=== PATIENT | female | born 1945 | race Caucasian/White ===

== ENCOUNTER → 2017-12-04 | Outpatient (CLI) | payer MEDICARE, BC ==
--- NOTE | 2017-12-04 10:58 | FL ---
ESOPHOGRAM. HISTORY: Dysphagia Dr. Clancy. 59 sec FL time. 1 pkg EZ gas II, 3 oz EZ HD, 4 oz EZ paque. Esophagram was performed per the air contrast technique. The patient swallowed barium and effervesce nt crystals without difficulty or delay. Esophageal peristalsis and motility appear to be within normal limits. Mild luminal narrowing involving the cervical esophagus at the C5-6 level. Consider direct visualizat ion. No evidence for diverticulum or aspiration. No hiatal hernia seen. Subsequently single contrast cervical esophagram was performed which fails demonstrate evidence for a spiration penetration or mass. IMPRESSION: 1.Mild luminal narrowing involving the cervical esophagus at the C5-6 level. Consider direct visualiz ation.
--- NOTE | 2017-12-04 18:05 | BD ---
EXAMINATION TYPE: Axial Bone Density DATE OF EXAM: 12/04/2017 CLINICAL HISTORY: Height: 62 Weight: 158 FRAX RISK QUESTIONS: Alcohol (3 or more units per day): no Family History (Parent hip fracture): no Glucocorticoids (More than 3mos): no (Ex: prednisone, prednisolone, methylprednisolone, dexamethasone, and hydrocortisone). History of Fracture in Adulthood: no Secondary Osteoporosis: 1. Type 1 Diabetes: no 2. Hyperthyroidism: no 3. Menopause before 45: no, 47 4. Malnutrition: no 5. Chronic liver disease: no Rheumatoid Arthritis: no Current Tobacco Use: no RISK FACTORS HISTORY OF: Family History of Osteoporosis: no Active: yes Diet low in dairy products/other sources of calcium: yes Postmenopausal woman: yes Take estrogen and/or progesterone medications: no Lost more than 2 inches in height since high school: no Frequent falls: no Poor Health: no Hyperparathyroidism: no Adrenal Insufficiency: no MEDICATIONS: Prednisone or other steroids: no Thyroid Medications: no Osteoporosis Medications: no Additional Medications: Bisoprolol/HCT, Omeprazole, Meloxicam, Losartan , Simvaststin Additional History: osteoarthritis EXAM MEASUREMENTS: Bone mineral densitometry was performed using the [employer] System. Bone mineral density as measured about the Lumbar spine is: ----- L1-L4(G/cm2): 1.164 T Score Values are as follows: ----- L2: -0.8 ----- L3: 0.2 ----- L4: 0.7 ----- L1-L4: -0.1 Bone mineral density not previously done here Bone mineral density about the R hip (g/cm2): 1.041 Bone mineral density about the L hip (g/cm2): 0.981 T Score values are as follows: -----R Neck: 0.0 -----L Neck: -0.4 -----R Total: -0.6 -----L Total: -0.6 Bone mineral density not previously done here IMPRESSION: Normal (Values between +1 and -1 indicate normal bone mass). Consider repeating this study in 5 year s or sooner if there is some new clinical indication. NOTE: T-SCORE=SD OF THE YOUNG ADULT MEAN.
--- NOTE | 2017-12-09 07:13 | MM ---
Reason for exam: screening (asymptomatic). Last mammogram was performed 6 years ago. History: Patient is postmenopausal and has history of other cancer at age 58. Family history of breast cancer in mother. Took estrogen for 10 years beginning at age 47. Physical Findings: A clinical breast exam by your physician is recommended on an annual basis and results should be correlated with mammographic findings. MG Screening Mammo w CAD Bilateral CC and MLO view(s) were taken. Prior study comparison: November 26, 2011, [facility] DIGITAL LEFT BREAST MAMMOGRAM w/CAD. November 12, 2011, bilateral digital screening mammo w/CAD. The breast tissue is heterogeneously dense. This may lower the sensitivity of mammography. Finding: There are typically benign vascular, dystrophic, round calcifications in both breasts. Asymmetric breast tissue in the left breast on prior disperses on current. There is no discrete abnormality. ASSESSMENT: Benign, BI-RAD 2 RECOMMENDATION: Routine screening mammogram of both breasts in 1 year.
== END | disposition home or self-care (01) ==
LOC: RADBDWWP 08:34
PROVIDERS: ATTEND Internal Medicine
DX: Z12.31 Encounter for screening mammogram for malignant neoplasm of breast (principal); K22.2 Esophageal obstruction; M24.10 Other articular cartilage disorders, unspecified site
CPT/HCPCS: 74220; 77067; 77080

== ENCOUNTER → 2017-12-30 | Day surgery (SDC) | payer MEDICARE, BC ==
[2017-12-25 15:46] VITALS: BMI 28.0
[~2017-12-30] MED LIST: LACTATED RINGERS 1,000 ML IV SCH; LIDOCAINE 1% 20 ML VIAL (10MG/ML) FOR IV START INTRADERMA PRN; NALOXONE 0.4 MG/ML 1 ML VIAL IV PRN; PROPOFOL 10 MG/ML 20 ML VIAL IV ONE
--- NOTE | 2017-12-30 13:47 | P.OP ---
Date of Procedure: 12/30/17 Preoperative Diagnosis: GERD Epigastric pain Postoperative Diagnosis: Hiatal hernia Gastritis Duodenitis Procedure(s) Performed: EGD with biopsy Surgeon: Rashel Navarro Pathology: other (Biopsies of duodenum, antrum, esophagus) Condition: stable Disposition: same day Indications for Procedure: 72-year-old female originally presented to the surgery clinic with complaints of epigastric pain and reflux. She is noted to have rheumatoid arthritis and is taking NSAIDs secondary to that. She was told to discontinue the NSAIDs prior to her arrival to the surgery clinic and was started on omeprazole. She states that her epigastric pain did improve after this. She presents today for upper endoscopy for further evaluation. She was explained the risks, benefits and alternatives to the procedure. She did provide consent prior to entering the endoscopy suite. Operative Findings: Hiatal hernia Gastritis Duodenitis Description of Procedure: The patient was brought into the endoscopy suite and placed in left lateral decubitus position. Sedation was provided by anesthesia and an endoscope was placed into the oropharynx into the esophagus and passed through to the second portion of the duodenum. The scope was then slowly retrieved examining mucosal surfaces. The scope was retrieved into the first part of the duodenum. Inflammatory changes were noted. Biopsies were taken. The scope was then withdrawn past the pylorus into the antrum of the stomach. Inflammatory changes were noted within the antrum and biopsies were taken. A retroflexed view was then performed and a small hiatal hernia was visualized. The gastric folds were noted to insufflate appropriately. There were no obvious polyps throughout the stomach. The scope was then retrieved into the esophagus. There were no inflammatory esophageal changes. Biopsies were taken. The scope was then withdrawn and the procedure was terminated. The patient was then taken to the postanesthesia care unit in stable condition.
[2017-12-30 14:33] VITALS: BP 151/86; PULSE 100
== END ==
LOC: ORWHC2ENDO 12:23
PROVIDERS: ATTEND Surgery
DX: K29.50 Unspecified chronic gastritis without bleeding (principal); K44.9 Diaphragmatic hernia without obstruction or gangrene; K29.80 Duodenitis without bleeding; K21.9 Gastro-esophageal reflux disease without esophagitis; M19.90 Unspecified osteoarthritis, unspecified site; I10 Essential (primary) hypertension; M06.9 Rheumatoid arthritis, unspecified; E78.5 Hyperlipidemia, unspecified; H91.90 Unspecified hearing loss, unspecified ear; Z79.1 Long term (current) use of non-steroidal anti-inflammatories (NSAID); Z79.899 Other long term (current) drug therapy; Z79.82 Long term (current) use of aspirin; Z90.49 Acquired absence of other specified parts of digestive tract; Z85.038 Personal history of other malignant neoplasm of large intestine; Z87.891 Personal history of nicotine dependence
CPT/HCPCS: 88305; 43239; J2704

== ENCOUNTER 2024-07-10 00:34 | Inpatient (IN) | payer MEDICARE, BC ==
[2024-07-10] MEDS: HYDROmorphone 1 MG/ML 1 ML SYRINGE IVP STA (00:53)
[2024-07-10] MEDS: SODIUM CHLORIDE 0.9% 1,000 ML IV STA ×2 (00:54→02:17)
[2024-07-10 01:12] LABS: Basophils % (A) 1 %; Eosinophils # (A) 0.2 k/uL (0-0.7); Eosinophils % (A) 2 %; HCT 37.9 % (34.0-46.0); HGB 12.2 gm/dL (11.4-16.0); Lymphocytes % (A) 24 %; MCH 33.7 pg (25.0-35.0); MCHC 32.4 g/dL (31.0-37.0); Macrocytosis Slight; Monocytes # (A) 0.3 k/uL (0-1.0); Monocytes % (A) 4 %; Neutrophils # (A) 5.5 k/uL (1.3-7.7); Neutrophils % (A) 68 %; Platelet Count 214 k/uL (150-450); RBC 3.64 m/uL (3.80-5.40); RDW 13.2 % (11.5-15.5); WBC 8.1 k/uL (3.8-10.6)
--- NOTE | 2024-07-10 01:14 | XR ---
EXAM: XR Left Ankle, 2 Views CLINICAL HISTORY: ITS.REASON XR Reason: pain TECHNIQUE: Frontal and lateral views of the left ankle. COMPARISON: No relevant prior studies available. FINDINGS/IMPRESSION: Displaced, laterally angulated distal fibular shaft fracture located 3.7 cm above the plafond. Displaced transverse medial malleolus fracture. Suspect a posterior malleolus fracture as well. Incongruent ankle mortise with valgus angulation of the talus with respect to the tibial plafond. Soft tissue swelling.
--- NOTE | 2024-07-10 01:24 | XR ---
EXAM: XR Chest, 1 View CLINICAL HISTORY: ITS.REASON XR Reason: pain TECHNIQUE: Frontal view of the chest. COMPARISON: No relevant prior studies available. FINDINGS: Lungs: No airspace consolidation. Pleural space: Unremarkable. No pleural effusion or pneumothorax. Heart: Cardiomegaly. No vascular congestion. Bones/joints: No acute fracture. No dislocation. IMPRESSION: No acute findings in the chest.
[2024-07-10 01:26] LABS: ALT 16 U/L (4-34); AST 28 U/L (14-36); African American GFR (CKD) 83 (>60 ml/min/1.73 sqM); Albumin 4.4 g/dL (3.5-5.0); Alkaline Phosphatase 51 U/L (38-126); Anion Gap 17 mmol/L; Blood Urea Nitrogen 15 mg/dL (7-17); Calcium 9.3 mg/dL (8.4-10.2); Carbon Dioxide 19 mmol/L (22-30); Chloride 103 mmol/L (98-107); Glucose 109 mg/dL (74-99); Non-African American GFR(CKD) 72 (>60 ml/min/1.73 sqM); Potassium 4.4 mmol/L (3.5-5.1); Sodium 139 mmol/L (137-145); Total Bilirubin 0.3 mg/dL (0.2-1.3); Total Protein 7.2 g/dL (6.3-8.2)
--- NOTE | 2024-07-10 01:37 | CT ---
EXAM: CT Head Without Intravenous Contrast CLINICAL HISTORY: ITS.REASON CT Reason: pain TECHNIQUE: Axial computed tomography images of the head/brain without intravenous contrast. CTDI is 45.2 mGy and DLP is 1032 mGy-cm. This CT exam was performed using one or more of the following dose reduction techniques: automated exposure control, adjustment of the mA and/or kV according to patient size, and/or use of iterative reconstruction technique. COMPARISON: No relevant prior studies available. FINDINGS: Brain: Age-related parenchymal volume loss. Mild chronic small vessel ischemic change. Stephens-white matter differentiation maintained. No hemorrhage, mass effect, parenchymal edema, or midline shift. Ventricles: Unremarkable. No hydrocephalus. Bones/joints: Unremarkable. No acute fracture. Soft tissues: Unremarkable. Vasculature: Intracranial atherosclerosis. Sinuses: Unremarkable as visualized. Mastoid air cells: Unremarkable as visualized. No mastoid effusion. Orbits: Lens replacements. IMPRESSION: No acute intracranial process. EXAM: CT Cervical Spine Without Intravenous Contrast CLINICAL HISTORY: ITS.REASON CT Reason: pain TECHNIQUE: Axial computed tomography images of the cervical spine without intravenous contrast. CTDI is 9.5 mGy and DLP is 288.3 mGy-cm. This CT exam was performed using one or more of the following dose reduction techniques: automated exposure control, adjustment of the mA and/or kV according to patient size, and/or use of iterative reconstruction technique. COMPARISON: No relevant prior studies available. FINDINGS: Vertebrae: Osteopenia. No acute fracture or subluxation. Discs/spinal canal/neural foramina: Multilevel left greater than right facet joint degeneration. Mid and lower cervical disc and uncovertebral joint degeneration. No significant central canal narrowing. Varying degrees of bilateral foraminal narrowing. Soft tissues: Unremarkable. IMPRESSION: No acute findings in the cervical spine.
[2024-07-10 01:47] LABS: Partial Thromboplastin Time 22.3 sec (22.0-30.0); Prothrombin Time 10.7 sec (10.0-12.5)
--- NOTE | 2024-07-10 01:51 | ED ---
General Adult HPI - General Chief complaint: Fall Stated complaint: Ankle fracture Time Seen by Provider: 07/10/24 00:35 Source: patient, EMS, RN notes reviewed, old records reviewed Mode of arrival: EMS - History of Present Illness Initial comments: Patient is a 79-year-old female presents emergency department for evaluation after a fall. Patient fell while at home. She was drinking alcohol when somehow she slipped while wearing her slippers and rolled her ankle. Suffered an ankle injury. Was sitting on the floor due to the injury and decided call EMS as she was afraid that she may have broken it. Patient was drinking this evening. Does have a glass of wine daily she states. Denies any history of alcohol withdrawals. Does have a history of acid reflux, hyperlipidemia, hypertension. Denies hitting her head or loss of consciousness. Denies any back pain, other pain other than her left ankle pain. Presents for further evaluation at this time. Patient does not take blood thinners.Patient does live by herself. - Related Data Home Medications Medication Instructions Recorded Confirmed Acetaminophen [Tylenol Extra 1,000 mg PO QAM 12/25/17 12/30/17 Strength] Aspirin [Adult Low Dose Aspirin EC] 81 mg PO DAILY 12/25/17 12/30/17 Bisoprolol-Hctz 10-6.25 mg [Ziac 1 each PO QAM 12/25/17 12/30/17 10-6.25] Cholecalciferol [Vitamin D3] 1,000 unit PO DAILY 12/25/17 12/30/17 Cyanocobalamin (Vitamin B-12) 5,000 mcg PO DAILY 12/25/17 12/30/17 [Vitamin B-12] Losartan Potassium 100 mg PO QAM 12/25/17 12/30/17 Omeprazole 40 mg PO QAM 12/25/17 12/30/17 Simvastatin 40 mg PO HS 12/25/17 12/30/17 Allergies Allergy/AdvReac Type Severity Reaction Status Date / Time No Known Allergies Allergy Verified 12/30/17 12:36 Review of Systems ROS Statement: Those systems with pertinent positive or pertinent negative responses have been documented in the HPI. Review of Systems: CONST: Denies fever EYES: Denies blurry vision ENT: Denies nasal congestion C/V: Denies Chest pain RESP: Denies shortness of breath GI: Denies abdominal pain : Denies dysuria SKIN: Denies rash. MSK: Endorses left ankle pain NEURO: Denies headache ROS Other: All systems not noted in ROS Statement are negative. Past Medical History Past Medical History: GERD/Reflux, Hearing Disorder / Deafness, Hyperlipidemia, Hypertension, Osteoarthritis (OA) Additional Past Medical History / Comment(s): Hard of hearing. History of Any Multi-Drug Resistant Organisms: None Reported Past Surgical History: Bowel Resection Additional Past Surgical History / Comment(s): 25 inches of colon removed 30 yrs ago due to diverticulititis. Past Anesthesia/Blood Transfusion Reactions: No Reported Reaction Past Psychological History: No Psychological Hx Reported Past Alcohol Use History: Daily Past Drug Use History: None Reported - Past Family History Mother Family Medical History: Cancer Additional Family Medical History / Comment(s): Cancerous lymph nodes removed from breast, still living at 97 yrs old. Father Family Medical History: CVA/TIA Additional Family Medical History / Comment(s): at 89 yrs of age. General Exam - General Exam Comments Initial Comments: General: Moderate distress secondary to left ankle pain. Appears intoxicated with alcohol. HEAD: Normal with no signs of head trauma. Negative Wang sign. Negative raccoon eyes. EYES: PERRLA, EOMI, conjunctiva normal, no discharge. Pupils are 3 mm and equal bilaterally. ENT: Hearing grossly intact, normal oropharynx. RESPIRATORY: Clear breath sounds bilaterally. No wheezes, rales, or rhonchi. C/V: Regular rate and rhythm. S1 and S2 auscultated, no edema, peripheral pulses 2+ and intact throughout ABD: Abd is soft, nontender, nondistended EXT: Pelvis is stable. No midline cervical, thoracic, lumbar spine tenderness to palpation. Obvious deformity of the left ankle. There is skin tenting over the medial malleolus of the left ankle however it did not break through. It is not an open fracture. Concern for significant left ankle fracture. No other obvious deformities.Patient is neurovascular intact in the distal left lower extremity. SKIN: Bruising over the medial malleolus but does not appear to be an open fracture. NEURO: Alert and oriented x 4. Cranial nerves II-XII intact. No focal sensory or strength deficits. GCS of 15. Course Vital Signs 07/10/24 07/10/24 00:37 02:19 Temperature 97.7 F Pulse Rate 73 67 Respiratory 18 18 Rate Blood Pressure 130/77 115/65 O2 Sat by Pulse 94 L 98 Oximetry Procedures - Orthopedic Fracture Reduction Fracture #1 Consent Obtained: verbal consent Side: left Fracture Reduction Location: tibia, fibula Analgesia: other (dilaudid) Technique: direct manipulation Post Reduction X-rays Demonstrate: acceptable reduction Post-Reduction Neuro Exam: intact Post-Reduction Vascular Exam: intact Splint Applied: Yes Patient Tolerated Procedure: well - Orthopedic Splinting/Casting Injury #1 Side: left Lower Extremity Injury Location: ankle Lower Extremity Immobilizer: posterior splint, stirrup splint Medical Decision Making - Medical Decision Making Was pt. sent in by a medical professional or institution (, PA, BUSINESS MANAGEMENT CONSULTANT, urgent care, hospital, or longterm...) When possible be specific @ -No Did you speak to anyone other than the patient for history (EMS, parent, family, police, friend...)? What history was obtained from this source @ -No Did you review nursing and triage notes (agree or disagree)? Why? @ -I reviewed and agree with nursing and triage notes Were old charts reviewed (outside hosp., previous admission, EMS record, old EKG, old radiological studies, urgent care reports/EKG's, longterm records)? Report findings @ -Old charts reviewed and only low-dose aspirin listed, no other blood thinners. Differential Diagnosis (chest pain, altered mental status, abdominal pain women, abdominal pain men, vaginal bleeding, weakness, fever, dyspnea, syncope, headache, dizziness, GI bleed, back pain, seizure, CVA, palpatations, mental health, musculoskeletal)? @ -Differential Musculoskeletal Muscular strain, contusion, ligament sprain, fracture, arthritis, septic arthritis, bursitis, cellulitis, muscle spasm, nerve compression, DVT, arterial occlusion, herpes zoster, electrolyte abnormality, tumor.... This is not meant to be in all inclusive list EKG interpreted by me (3pts min.). @ -As above X-rays interpreted by me (1pt min.). @ -Left ankle x-ray reveals at least a by mall fracture of the medial and posterior malleolus as well as a distal fibular shaft fracture. X-ray reveals no obvious acute cardiopulmonary process. Pelvis x-ray reveals no obvious acute traumatic injury. CT interpreted by me (1pt min.). @ -CT brain, C-spine negative for any obvious acute injury or process. U/S interpreted by me (1pt. min.). @ -None done What testing was considered but not performed or refused? (CT, X-rays, U/S, labs)? Why? @ -None What meds were considered but not given or refused? Why? @ -None Did you discuss the management of the patient with other professionals (professionals i.e. DrBravo, PA, BUSINESS MANAGEMENT CONSULTANT, lab, RT, psych nurse, social science manager, acquisition editor, teacher, u[employer]s. revenue officer, correctional counselor/case manager)? Give summary @ - I spoke with the orthopedic surgeon on-call, Dr. Zapien who accepted the admission. Was smoking cessation discussed for >3mins.? @ -No Was critical care preformed (if so, how long)? @ -Yes, 33 minutes. Were there social determinants of health that impacted care today? How? (Homelessness, low income, unemployed, alcoholism, drug addiction, transportation, low edu. Level, literacy, decrease access to med. care, care home, rehab)? @ -No Was there de-escalation of care discussed even if they declined (Discuss DNR or withdrawal of care, Hospice)? DNR status @ -No What co-morbidities impacted this encounter? (DM, HTN, Smoking, COPD, CAD, Cancer, CVA, ARF, Chemo, Hep., AIDS, mental health diagnosis, sleep apnea, morbid obesity)? @ -None Was patient admitted / discharged? Hospital course, mention meds given and route, prescriptions, significant lab abnormalities, going to OR and other pertinent info. @ -Patient is a 79-year-old female that lives by herself that fell and has an obvious left ankle injury. Does not meet trauma activation criteria. She is not on blood thinners. Did not lose consciousness. States she did not hit her head. Remembers the incident. Was wearing slippers when she rolled her ankle. Does not appear to be an open fracture. Patient be given IV fluids, Ancef, pain medications. I was able to reduce the fracture into a more anatomically appropriate position and splinted it. Patient tolerated the procedure well. Vitals are within acceptable limits. We will obtain imaging, as well as laboratory studies. She was in agreement this plan. EKG shows no signs of acute ischemia. Imaging remarkable for significant ankle fracture, she does have both medial and posterior malleoli are fracture with a distal fibular shaft fracture. CT brain and C-spine unremarkable. Remainder the x-ray is unremarkable. Postreduction x-ray of the left ankle does show improved alignment. She is neurovascular intact in the distal left lower extremity.Laboratory studies returned with an alcohol level of 150. Remainder the labs unremarkable. Patient's pain is improved. Discussed results with the patient. I spoke with the orthopedic surgeon on-call, Dr. Zapien who accepted the admission. And he stated no plan for surgery later today and therefore patient was given a diet order. Will continue with pain management. We will place the patient on CIWA protocol empirically, as she does drink on a daily basis. Will watch for signs of alcohol withdrawals. Dr. Clarke will be consulted for medical management. Physical therapy consulted. Patient was in agreement this plan. Undiagnosed new problem with uncertain prognosis? @ -No Drug Therapy requiring intensive monitoring for toxicity (Heparin, Nitro, Insulin, Cardizem)? @ -No Were any procedures done? @ -Fracture reduction, splinting Diagnosis/symptom? @ -Fall, left ankle fracture, left fibula fracture, alcohol intoxication Acute, or Chronic, or Acute on Chronic? @ -Acute Uncomplicated (without systemic symptoms) or Complicated (systemic symptoms)? @ -Complicated Side effects of treatment? @ -None Exacerbation, Progression, or Severe Exacerbation] @ -No Poses a threat to life or bodily function? @ -possibly, yes - Lab Data Result diagrams: 07/10/24 00:45 07/10/24 00:45 Lab Results 07/10/24 07/10/24 07/10/24 Range/Units 00:45 00:45 00:45 WBC 8.1 (3.8-10.6) k/uL RBC 3.64 L (3.80-5.40) m/uL Hgb 12.2 (11.4-16.0) gm/dL Hct 37.9 (34.0-46.0) % MCV 104.0 H (80.0-100.0) fL MCH 33.7 (25.0-35.0) pg MCHC 32.4 (31.0-37.0) g/dL RDW 13.2 (11.5-15.5) % Plt Count 214 (150-450) k/uL MPV 8.0 Neutrophils % 68 % Lymphocytes % 24 % Monocytes % 4 % Eosinophils % 2 % Basophils % 1 % Neutrophils # 5.5 (1.3-7.7) k/uL Lymphocytes # 2.0 (1.0-4.8) k/uL Monocytes # 0.3 (0-1.0) k/uL Eosinophils # 0.2 (0-0.7) k/uL Basophils # 0.0 (0-0.2) k/uL Macrocytosis Slight PT 10.7 (10.0-12.5) sec INR 1.0 (<1.2) APTT 22.3 (22.0-30.0) sec Sodium 139 (137-145) mmol/L Potassium 4.4 (3.5-5.1) mmol/L Chloride 103 (98-107) mmol/L Carbon Dioxide 19 L (22-30) mmol/L Anion Gap 17 mmol/L BUN 15 (7-17) mg/dL Creatinine 0.79 (0.52-1.04) mg/dL Est GFR (CKD-EPI)AfAm 83 (>60 ml/min/1.73 sqM) Est GFR (CKD-EPI)NonAf 72 (>60 ml/min/1.73 sqM) Glucose 109 H (74-99) mg/dL Calcium 9.3 (8.4-10.2) mg/dL Total Bilirubin 0.3 (0.2-1.3) mg/dL AST 28 (14-36) U/L ALT 16 (4-34) U/L Alkaline Phosphatase 51 (38-126) U/L Total Protein 7.2 (6.3-8.2) g/dL Albumin 4.4 (3.5-5.0) g/dL Serum Alcohol 150 mg/dL - EKG Data -: EKG Interpreted by Me EKG Comments: 12-lead Electrocardiogram Interpretation Note EKG was reviewed and interpreted by myself. 12-lead ECG performed at 0126 is interpreted by me as revealing normal sinus rhythm at a rate of 61 beats per minute. [place] is normal. NV interval is 179 ms, QRS durations 88 ms, QTc is 441 ms.. There were no ST or T wave abnormalities to suggest myocardial ischemia or injury. R wave progression across the precordium was satisfactory. By my interpretation this EKG is non-diagnostic for acute ischemia. Critical Care Time Critical Care Time: Yes Total Critical Care Time: 33 Disposition Clinical Impression: Fall, Closed left ankle fracture, Closed left fibular fracture, Alcohol intoxication, Debility Disposition: ADMITTED IP TO THIS [facility] Condition: Stable Referrals: Spencer Smith MD [Primary Care Provider] - 1-2 days Time of Disposition: 02:28
[2024-07-10 02:00] LABS: Alcohol 150 mg/dL
--- NOTE | 2024-07-10 02:12 | XR ---
EXAM: XR Left Ankle Complete, 2 Views CLINICAL HISTORY: ITS.REASON XR Reason: post splint/reduction TECHNIQUE: 2 views of the left ankle. COMPARISON: Left ankle radiographs 07/10/24 at 0046 hours FINDINGS/IMPRESSION: Status post reduction and splinting. Comminuted and mildly displaced distal fibular shaft fracture demonstrating improved alignment when compared to prior. Mildly displaced transverse medial malleolus fracture demonstrating improved alignment when compared to prior. Posterior malleolus fracture suggested on the lateral view. Persistent incongruent ankle mortise, but improved from prior. Soft tissue swelling.
--- NOTE | 2024-07-10 02:21 | XR ---
EXAM: XR Pelvis, 1 or 2 Views CLINICAL HISTORY: ITS.REASON XR Reason: pain TECHNIQUE: Frontal view of the pelvis. COMPARISON: No relevant prior studies available. FINDINGS: Bones/joints: Lumbar scoliosis and spondylosis. Osteoarthritis of both hips. Osteopenia. No acute fracture or dislocation. Soft tissues: Unremarkable. IMPRESSION: No acute findings in the pelvis.
[2024-07-10] MEDS ORDERED: NALOXONE 0.4 MG/ML 1 ML VIAL IV PRN (02:37)
[2024-07-10] MEDS ORDERED: LORazepam 2 MG/ML INJ IV PRN ×2 (02:39)
[2024-07-10] MEDS: MORPHINE SULFATE 4 MG/ML SYRINGE IVP PRN (02:47)
[2024-07-10 06:12] LABS: Amphetamine Screen,Urine Not Detected (NotDetected); Barbiturate Screen,Urine Detected (NotDetected); Benzodiazepines Screen,Urine Not Detected (NotDetected); Cocaine Screen,Urine Not Detected (NotDetected); Methadone Screen, Urine Not Detected (NotDetected); Opiate Screen,Urine Detected (NotDetected); Oxycodone Screen, Urine Not Detected (NotDetected); Phencyclidine Screen,Urine Not Detected (NotDetected); Tricyclic Antidepressant,Urine Not Detected (NotDetected); Urn Cannabinoid Scrn Not Detected (NotDetected)
[2024-07-10 06:21] LABS: Appearance,Urine Clear (Clear); Bilirubin,Urine Negative (Negative); Blood,Urine Negative (Negative); Color,Urine Colorless; Glucose,Urine (UA) Negative (Negative); Ketones,Urine Negative (Negative); Leukocyte Esterase,Urine Negative (Negative); Nitrite,Urine Negative (Negative); PH, Urine 5.5 (5.0-8.0); Protein,Urine Negative (Negative); Specific Gravity,Urine 1.008 (1.001-1.035); Urobilinogen,Urine <2.0 mg/dL (<2.0)
[2024-07-10] MEDS: HEPARIN SODIUM,PORCINE 5,000 UNIT/ML 1 ML VIAL SQ SCH (08:31)
[2024-07-10] MEDS: LORazepam 2 MG/ML INJ IV PRN (11:48)
--- NOTE | 2024-07-10 12:26 | P.CONS ---
History of Present Illness - Reason for Consult Consult date: 07/10/24 Medical management Requesting physician: Govind Zapien - Chief Complaint Fall - History of Present Illness Pleasant 79-year-old patient who follows with [facility] [employer] [facility] Temi Allred.. With Dr. Smith.. Chronic stable medical conditions include hard of hearing with hearing aids, hyperlipidemia, hypertension, primary osteoarthritis. Patient also 25 inches of colon removed 30 years ago due to diverticulitis. Smokes half a pack a day. Also being treated for tremors with on primidone. Patient normally drinks 3 to 4 glasses of wine at night. Yesterday was a bit stressed decided have a bit more. She was wearing this larger slippers and she tripped and fell down. Suffering a fracture to the left ankle. Currently in a Alfonzo wrap. Otherwise patient is rather active with no cardiac symptoms. No cardiac history. Review of systems: GEN.: Tired EYES: None HEENT: Decreased hearing NECK: None RESPIRATORY: None CARDIOVASCULAR: None GASTROINTESTINAL: None GENITOURINARY: None MUSCULOSKELETAL: Joint pains including left ankle LYMPHATICS: None HEMATOLOGICAL: None PSYCHIATRY: None NEUROLOGICAL: None Social history: Is a . Drinks anywhere from 3 to 4 glasses of wine a day. Smokes half a pack a day. Physical examination: VITAL SIGNS: 98.8, 80, 16, 155 x 76, 92% room air GENERAL: BMI 23.9, laying bed awake not in distress. EYES: Pupils equal. Conjunctiva anabel l. HEENT: External appearance of nose and ears normal, oral cavity grossly normal. NECK: JVD not raised; masses not palpable. HEART: First and second heart sounds are normal; no edema. LUNGS: Respiratory rate normal; clear to auscultation. ABDOMEN: Soft, nontender, liver spleen not palpable, no masses palpable. PSYCH: Alert and oriented x3; mood and affect anabel l. MUSCULOSKELETAL:No Clubbing/cyanosis;muscles-grossly intact. Evidence of OA in many joints including the hands. Left ankle in a Alfonzo wrap dressing. NEUROLOGICAL: Cranial nerves grossly intact; no facial asymmetry, power and sensation grossly intact. LYMPHATICS: No lymph nodes palpable in the axilla and neck INVESTIGATIONS, reviewed in the clinical context: White count 8.1 hemoglobin 12.2 platelets 214 sodium 139 potassium 4.4 AST 28 ALT 16 glucose 109 Urine drug screen positive for opiates, methadone EKG tracing personally reviewed by me-normal sinus rhythm. Chest x-ray film personally reviewed by me-unremarkable Left ankle x-ray: Displaced transverse medial malleolus fracture. Suspected posterior malleolus fracture as well. Valgus angulation of the talus. Distal fibular shaft fracture. Soft tissue swelling. Assessment plan: -Acute left ankle fracture at least in 3 places secondary to fall patient is using a large pair of slippers and tripped and fell. Currently in a strap. Due for surgery as per orthopedics being followed by Dr. Zapien -Alcohol use disorder. Patient averages 3 to 4 glasses of wine at night. Was up to 5 glasses yesterday. CIWA protocol. Add Valium 2.5 mg twice daily for DT prophylaxis. Add thiamine 100 mg a day. -Essential tremor Primidone 50 mg nightly -Primary osteoarthritis multiple joints Mobic 15 mg a day -Essential hypertension Bisoprolol hydrochlorothiazide 04/04.251 tablet a day losartan 100 mg a day -Hyperlipidemia Simvastatin 40 mg a day Care was discussed with the patient. Questions answered. DVT prophylaxis subcu heparin. Patient is medically stable to proceed for surgery with no contraindications. Given her age she is a mild to moderate risk for any perioperative cardiovascular complications. Thank you Dr. Zapien Past Medical History Past Medical History: GERD/Reflux, Hearing Disorder / Deafness, Hyperlipidemia, Hypertension, Osteoarthritis (OA) Additional Past Medical History / Comment(s): Hard of hearing. History of Any Multi-Drug Resistant Organisms: None Reported Past Surgical History: Bowel Resection Additional Past Surgical History / Comment(s): 25 inches of colon removed 30 yrs ago due to diverticulititis. Past Anesthesia/Blood Transfusion Reactions: No Reported Reaction Past Psychological History: No Psychological Hx Reported Smoking Status: Current every day smoker Past Alcohol Use History: Daily Additional Past Alcohol Use History / Comment(s): Started smoking at 40 yrs old, quit 6 yrs ago, has resumed recently, states she smokes about 8 cigarettes a day. Drinks 3 glasses of wine daily. Past Drug Use History: None Reported - Past Family History Mother Family Medical History: Cancer Additional Family Medical History / Comment(s): Cancerous lymph nodes removed from breast, still living at 97 yrs old. Father Family Medical History: CVA/TIA Additional Family Medical History / Comment(s): at 89 yrs of age. Medications and Allergies Home Medications Medication Instructions Recorded Confirmed Type Bisoprolol-Hctz 10-6.25 mg [Ziac 1 tab PO DAILY 12/25/17 07/10/24 History 10-6.25] Losartan Potassium 100 mg PO DAILY 12/25/17 07/10/24 History Simvastatin 40 mg PO DAILY 12/25/17 07/10/24 History Gabapentin [Neurontin] 300 mg PO TID 07/10/24 07/10/24 History Meloxicam [Mobic] 15 mg PO DAILY 07/10/24 07/10/24 History Primidone [Mysoline] 50 mg PO HS 07/10/24 07/10/24 History Allergies Allergy/AdvReac Type Severity Reaction Status Date / Time No Known Allergies Allergy Verified 07/10/24 11:40 Physical Exam Vitals: Vital Signs Temp Pulse Pulse Resp BP BP Pulse Ox 07/10/24 12:14 98.8 F 80 16 155/76 92 L 07/10/24 08:00 85 16 07/10/24 07:42 98.6 F 85 16 144/75 94 L 07/10/24 05:30 73 16 07/10/24 03:38 97.6 F 73 16 127/69 96 07/10/24 02:19 67 18 115/65 98 07/10/24 00:37 97.7 F 73 18 130/77 94 L Intake and Output 07/09/24 07/10/24 07/10/24 22:59 06:59 14:59 Intake Total 480 Output Total 200 Balance -200 480 Intake: Oral 480 Output: Urine 200 Other: Voiding Method External Catheter External Catheter # Bowel Movements 0 Weight 61.235 kg Results CBC & Chem 7: 07/10/24 00:45 07/10/24 00:45 Labs: Abnormal Lab Results - Last 24 Hours (Table) 07/10/24 07/10/24 07/10/24 Range/Units 00:45 00:45 05:17 RBC 3.64 L (3.80-5.40) m/uL MCV 104.0 H (80.0-100.0) fL Carbon Dioxide 19 L (22-30) mmol/L Glucose 109 H (74-99) mg/dL Urine Opiates Screen Detected H (NotDetected) Ur Barbiturates Screen Detected H (NotDetected)
[2024-07-10] MEDS: MELOXICAM 7.5 MG TAB PO SCH (13:39)
[2024-07-10] MEDS: LACTATED RINGERS 1,000 ML IV SCH (13:58)
[2024-07-10] MEDS: GABAPENTIN 300 MG CAP PO SCH (13:59)
[2024-07-10] MEDS: LOSARTAN 50 MG TAB PO SCH (13:59)
[2024-07-10] MEDS: ATORVASTATIN 20 MG TAB PO SCH (13:59)
[2024-07-10] MEDS: NICOTINE 14MG/24HR PATCH TRANSDERM SCH (13:59)
[2024-07-10] MEDS: FAMOTIDINE 20 MG TAB PO SCH (13:59)
[2024-07-10] MEDS: THIAMINE 100 MG TAB PO SCH (13:59)
--- NOTE | 2024-07-10 14:00 | P.HPOR ---
History of Present Illness H&P Date: 07/10/24 This is a 79 year-old female who is admitted for a left ankle fracture. Patient is seen and evaluated at bedside today. Patient states that she fell at home last night after tripping on her slipper. Patient presented to the emergency room via EMS and x-rays revealed a comminuted fracture dislocation of the left ankle. Patient states that she does live alone. Patient states that her pain is controlled and she admits to chronic numbness in bilateral feet and hands from a history of neuropathy. Patient has been started on CIWA protocol as she admits to daily alcohol use. Patient denies hitting her head or any loss of consciousness. Patient denies being on any blood thinners. Patient's past medical history is significant for GERD, hearing disorder, hyperlipidemia, hypertension and osteoarthritis. Review of Systems See HPI. Past Medical History Past Medical History: GERD/Reflux, Hearing Disorder / Deafness, Hyperlipidemia, Hypertension, Osteoarthritis (OA) Additional Past Medical History / Comment(s): Hard of hearing. History of Any Multi-Drug Resistant Organisms: None Reported Past Surgical History: Bowel Resection Additional Past Surgical History / Comment(s): 25 inches of colon removed 30 yrs ago due to diverticulititis. Past Anesthesia/Blood Transfusion Reactions: No Reported Reaction Past Psychological History: No Psychological Hx Reported Smoking Status: Current every day smoker Past Alcohol Use History: Daily Additional Past Alcohol Use History / Comment(s): Started smoking at 40 yrs old, quit 6 yrs ago, has resumed recently, states she smokes about 8 cigarettes a day. Drinks 3 glasses of wine daily. Past Drug Use History: None Reported - Past Family History Mother Family Medical History: Cancer Additional Family Medical History / Comment(s): Cancerous lymph nodes removed from breast, still living at 97 yrs old. Father Family Medical History: CVA/TIA Additional Family Medical History / Comment(s): at 89 yrs of age. Medications and Allergies Home Medications Medication Instructions Recorded Confirmed Type Bisoprolol-Hctz 10-6.25 mg [Ziac 1 tab PO DAILY 12/25/17 07/10/24 History 10-6.25] Losartan Potassium 100 mg PO DAILY 12/25/17 07/10/24 History Simvastatin 40 mg PO DAILY 12/25/17 07/10/24 History Gabapentin [Neurontin] 300 mg PO TID 07/10/24 07/10/24 History Meloxicam [Mobic] 15 mg PO DAILY 07/10/24 07/10/24 History Primidone [Mysoline] 50 mg PO HS 07/10/24 07/10/24 History Allergies Allergy/AdvReac Type Severity Reaction Status Date / Time No Known Allergies Allergy Verified 07/10/24 11:40 Physical Examination On exam patient is resting comfortably in bed in no acute distress. Patient is alert and oriented 3. Left lower extremity: Splint is clean, dry and intact. Capillary refill is normal at less than 2 seconds. Patient is able to wiggle the toes of the left foot. Left lower extremity is warm and well-perfused. Sensation intact. Neurovascular status and circulatory status are intact. Exams of bilateral upper extremities and the right lower extremity are within normal limits. Head is normocephalic and atraumatic. Results X-rays of the left ankle dated 07/10/2024 shows: Displaced laterally angulated distal fibular shaft fracture located 3.7 cm above the plafond. Displaced transverse medial malleolus fracture. Suspect posterior malleolus fracture as well. Incongruent ankle mortise with valgus angulation of the talus with respect to the tibial plafond. Soft tissue swelling. Postreduction x-rays of the left ankle dated 07/10/2024 shows: Comminuted and mildly displaced distal fibular shaft fracture demonstrating improved alignment when compared to prior. Mildly displaced transverse medial malleolus fracture demonstrating improved alignment when compared to prior. Posterior malleolus fracture suggested on the lateral view. Persistent incongruent ankle mortise, but improved from prior. Soft tissue swelling. X-rays of the pelvis dated 07/10/2024 show: No acute findings in the pelvis. A CT of the brain and C-spine without contrast dated 07/10/2024 shows: No acute intracranial process. A chest x-ray dated 07/10/2024 shows: No acute findings in the chest. - Labs Labs: Abnormal Lab Results - Last 24 Hours (Table) 07/10/24 07/10/24 07/10/24 Range/Units 00:45 00:45 05:17 RBC 3.64 L (3.80-5.40) m/uL MCV 104.0 H (80.0-100.0) fL Carbon Dioxide 19 L (22-30) mmol/L Glucose 109 H (74-99) mg/dL Urine Opiates Screen Detected H (NotDetected) Ur Barbiturates Screen Detected H (NotDetected) H & H 07/10/24 Range/Units 00:45 Hgb 12.2 (11.4-16.0) gm/dL Hct 37.9 (34.0-46.0) % Coagulation 07/10/24 Range/Units 00:45 INR 1.0 (<1.2) Result Diagrams: 07/10/24 00:45 07/10/24 00:45 Assessment and Plan (1) Alcohol intoxication Current Visit: Yes Status: Acute Code(s): F10.929 - ALCOHOL USE, UNSPECIFIED WITH INTOXICATION, UNSPECIFIED SNOMED Code(s): 06439835 (2) Closed left ankle fracture Current Visit: Yes Status: Acute Code(s): S82.892A - OTH FRACTURE OF LEFT LOWER LEG, INIT FOR CLOS FX SNOMED Code(s): 89278428 (3) Fall Current Visit: Yes Status: Acute Code(s): W19.XXXA - UNSPECIFIED FALL, INITIAL ENCOUNTER SNOMED Code(s): 1378218 Plan: 1. A CT of the left ankle is ordered today. 2. Maintain splint to the left lower extremity. Rest and elevate for swelling. Non-weightbearing to the left lower extremity. 3. Continue pain control. 4. Appreciate input from internal medicine. 5. It is discussed at bedside that surgery will be planned for next week after swelling improves. In the meantime a CT is ordered for surgical planning and the patient will likely require ECF placement as she lives alone.
[2024-07-10] MEDS: BISOPROLOL-HCTZ 10-6.25 MG 1 EACH TAB PO SCH (14:17)
--- NOTE | 2024-07-10 17:57 | CT ---
EXAMINATION TYPE: CT ankle LT wo con DATE OF EXAM: 07/10/2024 5:35 PM COMPARISON: . Extremity radiograph CLINICAL INDICATION: Female, 79 years old with history of Left ankle fracture; PHH, left ankle fx TECHNIQUE: Axial images were obtained of the CT ankle LT wo con, Additional coronal and sagittal refo rmatted images and soft tissue and bone window were obtained for review. 3-D reconstruction was creat ed on a separate workstation. Contrast used: mL of , (None if empty) Oral contrast used: (None if empty) CT DLP: 278.5 mGycm, Automated exposure control for dose reduction was used. FINDINGS: Acute fracture of the posterior tibia with depression up to 3 mm. Acute fracture of the med ial malleolus with 11 mm displacement. Acute comminuted fracture of the distal fibula with lateral an gulation. There is associated soft tissue edema. IMPRESSION: Trimalleolar fracture with displacement of all fracture fragments. There is depression of the posteri or tibia articular surface. [facility], , 07/10/2024 5:55 PM
[2024-07-10] MEDS: diazePAM 2 MG TAB PO SCH (18:15)
[2024-07-10] MEDS: PRIMIDONE 50 MG TAB PO SCH (21:36)
[2024-07-11] MEDS: ACETAMINOPHEN TAB 325 MG TAB PO PRN (07:55)
[2024-07-11 09:28] LABS: Basophils # (A) 0.03 X 10*3/uL (0.00-0.10); Basophils % (A) 0.4 %; Eosinophils # (A) 0.03 X 10*3/uL (0.04-0.35); Eosinophils % (A) 0.4 %; HCT 37.8 % (37.2-46.3); HGB 12.4 g/dL (12.0-15.0); Lymphocytes # (A) 2.12 X 10*3/uL (0.90-5.00); Lymphocytes % (A) 27.4 %; MCH 33.3 pg (27.0-32.0); MCHC 32.8 g/dL (32.0-37.0); MCV 101.6 FL (80.0-97.0); Mean Platelet Volume 10.8 FL (9.5-12.2); Monocytes # (A) 0.63 X 10*3/uL (0.20-1.00); Monocytes % (A) 8.1 %; NRBC Per 100 WBC 0 X 10*3/uL (0.00-0.01); Neutrophils # (A) 4.91 X 10*3/uL (1.80-7.70); Neutrophils % (A) 63.4 %; Platelet Count 205 X 10*3/uL (140-440); RBC 3.72 X 10*6/uL (4.10-5.20); RDW 13.1 % (11.5-14.5); WBC 7.74 X 10*3/uL (4.50-10.00)
--- NOTE | 2024-07-11 10:27 | P.PN ---
Subjective Progress Note Date: 07/11/24 This is a 79-year-old female who was admitted for a left ankle fracture. Patient is seen and evaluated at bedside today and states that her pain is well- controlled. Patient denies any new complaints today. Objective - Vital Signs Vital signs: Vital Signs Temp 99.1 F 07/11/24 07:28 Pulse 71 07/11/24 07:28 Resp 16 07/11/24 07:28 BP 115/79 07/11/24 07:28 Pulse Ox 97 07/11/24 07:28 FiO2 Intake & Output 07/10/24 07/11/24 07/11/24 18:59 06:59 18:59 Intake Total 1560 Output Total 800 850 Balance 760 -850 Intake: Oral 1560 Output: Urine 800 850 Other: Voiding Method External Catheter External Catheter - Exam On exam patient is resting comfortably in bed in no acute distress. Patient is alert and oriented 3. Left lower extremity: Splint is clean, dry and intact. Capillary refill is normal at less than 2 seconds. Patient is able to wiggle the toes of the left foot. Left lower extremity is warm and well-perfused. Sensation intact. Neurovascular status and circulatory status are intact. - Labs CBC & Chem 7: 07/11/24 05:48 07/10/24 00:45 Labs: Abnormal Lab Results - Last 24 Hours (Table) 07/11/24 Range/Units 05:48 RBC 3.72 L (4.10-5.20) X 10*6/uL MCV 101.6 H (80.0-97.0) FL MCH 33.3 H (27.0-32.0) pg Eosinophils # 0.03 L (0.04-0.35) X 10*3/uL Assessment and Plan (1) Alcohol intoxication Current Visit: Yes Status: Acute Code(s): F10.929 - ALCOHOL USE, UNSPECIFIED WITH INTOXICATION, UNSPECIFIED SNOMED Code(s): 71758721 (2) Closed left ankle fracture Current Visit: Yes Status: Acute Code(s): S82.892A - OTH FRACTURE OF LEFT LOWER LEG, INIT FOR CLOS FX SNOMED Code(s): 41497777 (3) Fall Current Visit: Yes Status: Acute Code(s): W19.XXXA - UNSPECIFIED FALL, INITIAL ENCOUNTER SNOMED Code(s): 7224686 Plan: 1. A CT report of the left ankle without contrast dated 05/10/2025 shows: Trimalleolar fracture with displacement of all fracture fragments. There is depression of the posterior tibial articular surface. 2. Maintain splint to the left lower extremity. Rest and elevate for swelling. Non-weightbearing to the left lower extremity. 3. Continue pain control. 4. Appreciate input from internal medicine. 5. It is discussed at bedside that surgery will be planned for next week after swelling improves. In the meantime, patient will likely require ECF placement as she lives alone.
[2024-07-11 11:29] LABS: ALT 11 U/L (8-44); AST 20 U/L (13-35); Albumin 3.9 g/dL (3.8-4.9); Albumin/Globulin Ratio 1.56 Ratio (1.60-3.17); Alkaline Phosphatase 69 U/L (41-126); BUN/Creat Ratio 13.43 Ratio (12.00-20.00); Blood Urea Nitrogen 9.4 mg/dL (9.0-27.0); Calcium 8.9 mg/dL (8.7-10.3); Carbon Dioxide 24.1 mmol/L (21.6-31.8); Chloride 100 mmol/L (96-109); Globulin 2.5 g/dL (1.6-3.3); Glucose 117 mg/dL (70-110); Potassium 4.2 mmol/L (3.5-5.5); Sodium 135 mmol/L (135-145); Total Bilirubin 0.9 mg/dL (0.3-1.2); Total Protein 6.4 g/dL (6.2-8.2)
--- NOTE | 2024-07-11 17:06 | P.PN ---
Progress Note - Text Progress Note Date: 07/11/24 - Chief Complaint Fall - History of Present Illness Pleasant 79-year-old patient who follows with [employer] Temi Allred.. With Dr. Smith.. Chronic stable medical conditions include hard of hearing with hearing aids, hyperlipidemia, hypertension, primary osteoarthritis. Patient also 25 inches of colon removed 30 years ago due to diverticulitis. Smokes half a pack a day. Also being treated for tremors with on primidone. Patient normally drinks 3 to 4 glasses of wine at night. Yesterday was a bit stressed decided have a bit more. She was wearing this larger slippers and she tripped and fell down. Suffering a fracture to the left ankle. Currently in a Alfonzo wrap. Otherwise patient is rather active with no cardiac symptoms. No cardiac history. July 11: Per Dr. Zapien's team patient's left ankle fracture swelling is to go down. Before surgery can be done. This probably happened next week. Meantime patient stable. On Valium for DVT prophylaxis. Tolerating diet. Otherwise comfortable Active Medications Acetaminophen (Acetaminophen Tab 325 Mg Tab) 650 mg PO Q6HR PRN PRN Reason: Mild Pain or Fever > 100.5 Last Admin: 07/11/24 14:27 Dose: 650 mg Atorvastatin Calcium (Atorvastatin 20 Mg Tab) 20 mg PO DAILY [facility] Last Admin: 07/11/24 07:57 Dose: 20 mg Bisoprolol Fumarate (Bisoprolol-Hctz 10-6.25 Mg 1 Each Tab) 1 each PO DAILY [facility] Last Admin: 07/11/24 08:01 Dose: 1 each Diazepam (Diazepam 2 Mg Tab) 2 mg PO 0600,1800 [facility] Last Admin: 07/11/24 06:07 Dose: 2 mg Famotidine (Famotidine 20 Mg Tab) 20 mg PO BID [facility] Last Admin: 07/11/24 07:56 Dose: 20 mg Gabapentin (Gabapentin 300 Mg Cap) 300 mg PO TID [facility] Last Admin: 07/11/24 16:35 Dose: 300 mg Heparin Sodium (Porcine) (Heparin Sodium,Porcine 5,000 Unit/Ml 1 Ml Vial) 5,000 unit SQ Q12HR [facility] Last Admin: 07/11/24 07:56 Dose: 5,000 unit Lactated Ringer's (Lactated Ringers) 1,000 mls @ 75 mls/hr IV .[id number] [facility] Last Admin: 07/11/24 16:35 Dose: 75 mls/hr Lorazepam (Lorazepam 2 Mg/Ml Inj) 1 mg IV Q1HR PRN PRN Reason: CIWA 10 to 15 Lorazepam (Lorazepam 2 Mg/Ml Inj) 1 mg IV Q2HR PRN PRN Reason: CIWA 8 or 9 Last Admin: 07/10/24 11:48 Dose: 1 mg Lorazepam (Lorazepam 2 Mg/Ml Inj) 2 mg IV Q10M PRN PRN Reason: CIWA 16 or higher Stop: 07/12/24 02:39 Losartan Potassium (Losartan 50 Mg Tab) 100 mg PO DAILY [facility] Last Admin: 07/11/24 07:56 Dose: 100 mg Meloxicam (Meloxicam 7.5 Mg Tab) 15 mg PO DAILY [facility] Last Admin: 07/11/24 07:57 Dose: 15 mg Morphine Sulfate (Morphine Sulfate 4 Mg/Ml Syringe) 4 mg IVP Q4HR PRN PRN Reason: Pain Last Admin: 07/11/24 12:19 Dose: 4 mg Naloxone HCl (Naloxone 0.4 Mg/Ml 1 Ml Vial) 0.2 mg IV Q2M PRN PRN Reason: Opioid Reversal Nicotine (Nicotine 14mg/24hr Patch) 1 patch TRANSDERM DAILY [facility] Last Admin: 07/11/24 07:58 Dose: 1 patch Ondansetron HCl (Ondansetron 4 Mg/2 Ml Vial) 4 mg IVP Q8HR PRN PRN Reason: Nausea And Vomiting Primidone (Primidone 50 Mg Tab) 50 mg PO HS [facility] Last Admin: 07/10/24 21:36 Dose: 50 mg Thiamine HCl (Thiamine 100 Mg Tab) 100 mg PO DAILY [facility] Last Admin: 07/11/24 07:56 Dose: 100 mg Social history: Is a . Drinks anywhere from 3 to 4 glasses of wine a day. Smokes half a pack a day. Physical examination: VITAL SIGNS: 98.6, 70, 16, 156% 8, 97% room air GENERAL: BMI 23.9, laying bed awake appears comfortable EYES: Pupils equal. Conjunctiva anabel l. HEENT: External appearance of nose and ears normal, oral cavity grossly normal. NECK: JVD not raised; masses not palpable. HEART: First and second heart sounds are normal; no edema. LUNGS: Respiratory rate normal; clear to auscultation. ABDOMEN: Soft, nontender, liver spleen not palpable, no masses palpable. PSYCH: Alert and oriented x3; mood and affect anabel l. MUSCULOSKELETAL:No Clubbing/cyanosis;muscles-grossly intact. Evidence of OA in many joints including the hands. Left ankle in a Alfonzo wrap dressing. INVESTIGATIONS, reviewed in the clinical context: July 11: White count 7.7 hemoglobin 12.4 platelets 205 potassium 4.2 creatinine 0.7 White count 8.1 hemoglobin 12.2 platelets 214 sodium 139 potassium 4.4 AST 28 ALT 16 glucose 109 Urine drug screen positive for opiates, methadone EKG tracing personally reviewed by me-normal sinus rhythm. Chest x-ray film personally reviewed by me-unremarkable Left ankle x-ray: Displaced transverse medial malleolus fracture. Suspected posterior malleolus fracture as well. Valgus angulation of the talus. Distal fibular shaft fracture. Soft tissue swelling. Assessment plan: -Acute left ankle fracture at least in 3 places secondary to fall patient is u sing a large pair of slippers and tripped and fell. Currently in a strap. Due for surgery as per orthopedics being followed by Dr. Zapien [facility] orthopedic team surgery sometime next week after swelling is gone down. -Alcohol use disorder. Patient averages 3 to 4 glasses of wine at night. Was up to 5 glasses yesterday. CIWA protocol. Valium 2 mg twice daily for DT prophylaxis. thiamine 100 mg a day. -Essential tremor Primidone 50 mg nightly -Primary osteoarthritis multiple joints Mobic 15 mg a day -Essential hypertension Bisoprolol hydrochlorothiazide 04/04.251 tablet a day losartan 100 mg a day -Hyperlipidemia Simvastatin 40 mg a day Patient will be requiring placement until surgical intervention in a week's time. Thank you Dr. Zapien Past Medical History Past Medical History: GERD/Reflux, Hearing Disorder / Deafness, Hyperlipidemia, Hypertension, Osteoarthritis (OA) Additional Past Medical History / Comment(s): Hard of hearing. History of Any Multi-Drug Resistant Organisms: None Reported Past Surgical History: Bowel Resection Additional Past Surgical History / Comment(s): 25 inches of colon removed 30 yrs ago due to diverticulititis. Past Anesthesia/Blood Transfusion Reactions: No Reported Reaction Past Psychological History: No Psychological Hx Reported Smoking Status: Current every day smoker Past Alcohol Use History: Daily Additional Past Alcohol Use History / Comment(s): Started smoking at 40 yrs old, quit 6 yrs ago, has resumed recently, states she smokes about 8 cigarettes a day. Drinks 3 glasses of wine daily. Past Drug Use History: None Reported
[2024-07-11] MEDS: ENOXAPARIN 40 MG/0.4 ML SYRINGE SQ SCH (18:13)
--- NOTE | 2024-07-12 12:54 | P.PN ---
Subjective Progress Note Date: 07/12/24 This is a 79-year-old female who was admitted for a left ankle fracture. Patient is seen and evaluated at bedside today and states that her pain is well- controlled. Patient denies any new complaints today. Objective - Vital Signs Vital signs: Vital Signs Temp 98.4 F 07/12/24 07:02 Pulse 77 07/12/24 07:02 Resp 16 07/12/24 07:02 BP 131/68 07/12/24 07:02 Pulse Ox 95 07/12/24 07:47 FiO2 Intake & Output 07/11/24 07/12/24 07/12/24 18:59 06:59 18:59 Intake Total 3160 Output Total 600 300 Balance 2560 -300 Intake: Oral 3160 Output: Urine 600 300 Other: Voiding Method External Catheter External Catheter External Catheter - Exam On exam patient is resting comfortably in bed in no acute distress. Patient is alert and oriented 3. Left lower extremity: Splint is clean, dry and intact. Capillary refill is normal at less than 2 seconds. Patient is able to wiggle the toes of the left foot. Left lower extremity is warm and well-perfused. Sensation intact. Neurovascular status and circulatory status are intact. - Labs CBC & Chem 7: 07/11/24 05:48 07/11/24 05:48 Labs: Abnormal Lab Results - Last 24 Hours (Table) 07/11/24 Range/Units 05:48 Glucose 117 H (70-110) mg/dL Albumin/Globulin Ratio 1.56 L (1.60-3.17) Ratio Assessment and Plan (1) Alcohol intoxication Current Visit: Yes Status: Acute Code(s): F10.929 - ALCOHOL USE, UNSPECIFIED WITH INTOXICATION, UNSPECIFIED SNOMED Code(s): 24449670 (2) Closed left ankle fracture Current Visit: Yes Status: Acute Code(s): S82.892A - OTH FRACTURE OF LEFT LOWER LEG, INIT FOR CLOS FX SNOMED Code(s): 88770067 (3) Fall Current Visit: Yes Status: Acute Code(s): W19.XXXA - UNSPECIFIED FALL, INITIAL ENCOUNTER SNOMED Code(s): 1174853 Plan: 1. A CT report of the left ankle without contrast dated 05/10/2025 shows: Trimalleolar fracture with displacement of all fracture fragments. There is depression of the posterior tibial articular surface. 2. Maintain splint to the left lower extremity. Rest and elevate for swelling. Non-weightbearing to the left lower extremity. 3. Continue pain control. 4. Appreciate input from internal medicine. 5. Planing for ORIF of the left ankle on 07/13/[address] Cintron pending medical clearance and patient consent.
--- NOTE | 2024-07-12 12:56 | P.CNOR ---
History of Present Illness - [facility] Consult date: 07/12/24 Consult reason: fracture History of present illness: This is a 79 year-old female who is admitted for a left ankle fracture. Patient is seen and evaluated at bedside today. Patient states that she fell at home last night after tripping on her slipper. Patient presented to the emergency room via EMS and x-rays revealed a comminuted fracture dislocation of the left ankle. Patient states that she does live alone. Patient states that her pain is controlled and she admits to chronic numbness in bilateral feet and hands from a history of neuropathy. Patient has been started on CIWA protocol as she admits to daily alcohol use. Patient denies hitting her head or any loss of consciousness. Patient denies being on any blood thinners. Patient's past medical history is significant for GERD, hearing disorder, hyperlipidemia, hypertension and osteoarthritis. Past Medical History Past Medical History: GERD/Reflux, Hearing Disorder / Deafness, Hyperlipidemia, Hypertension, Osteoarthritis (OA) Additional Past Medical History / Comment(s): Hard of hearing. History of Any Multi-Drug Resistant Organisms: None Reported Past Surgical History: Bowel Resection Additional Past Surgical History / Comment(s): 25 inches of colon removed 30 yrs ago due to diverticulititis. Past Anesthesia/Blood Transfusion Reactions: No Reported Reaction Past Psychological History: No Psychological Hx Reported Smoking Status: Current every day smoker Past Alcohol Use History: Daily Additional Past Alcohol Use History / Comment(s): Started smoking at 40 yrs old, quit 6 yrs ago, has resumed recently, states she smokes about 8 cigarettes a day. Drinks 3 glasses of wine daily. Past Drug Use History: None Reported - Past Family History Mother Family Medical History: Cancer Additional Family Medical History / Comment(s): Cancerous lymph nodes removed from breast, still living at 97 yrs old. Father Family Medical History: CVA/TIA Additional Family Medical History / Comment(s): at 89 yrs of age. Medications and Allergies Home Medications Medication Instructions Recorded Confirmed Type Bisoprolol-Hctz 10-6.25 mg [Ziac 1 tab PO DAILY 12/25/17 07/10/24 History 10-6.25] Losartan Potassium 100 mg PO DAILY 12/25/17 07/10/24 History Simvastatin 40 mg PO DAILY 12/25/17 07/10/24 History Gabapentin [Neurontin] 300 mg PO TID 07/10/24 07/10/24 History Meloxicam [Mobic] 15 mg PO DAILY 07/10/24 07/10/24 History Primidone [Mysoline] 50 mg PO HS 07/10/24 07/10/24 History Allergies Allergy/AdvReac Type Severity Reaction Status Date / Time No Known Allergies Allergy Verified 07/10/24 11:40 Physical Examination Osteopathic Statement: *. No significant issues noted on an osteopathic structural exam other than those noted in the History and Physical/Consult. Patient visited at bedside for surgical consultation for left ankle fracture A/o x 3, no Distress Splint on left leg. Leg elevated with pillows Splint removed for skin and swelling inspection: minimal swelling. No fracture blisters. Small, superficial abrasion over medial malleolus. No SOI Pain over the medial and lateral malleoli. Results - Labs Labs: H & H 07/10/24 07/11/24 Range/Units 00:45 05:48 Hgb 12.2 12.4 (11.4-16.0) gm/dL Hct 37.9 37.8 (34.0-46.0) % Coagulation 07/10/24 Range/Units 00:45 INR 1.0 (<1.2) Result Diagrams: 07/11/24 05:48 07/11/24 05:48 - Diagnostic results Ankle/Foot x-ray: image reviewed Ankle/Foot CT: image reviewed (There is a post-reduction, displaced trimalleolar ankle fx with syndesmotic widening. Posterior malleolar fragment approx. 25% of the articular surface. There is commimution and shortening of the lateral malleolar fracture. Mild, residual medial translation of the talus in the ankle mortice.) Assessment and Plan (1) Displaced trimalleolar fracture of left lower leg, initial encounter for closed fracture Current Visit: Yes Status: Acute Code(s): S82.852A - DISPLACED TRIMALLEOLAR FRACTURE OF LEFT LOWER LEG, INIT SNOMED Code(s): 3473655 Plan: Discussed findings with the patient. Surgery recommended to repair fracture There is minimal swelling and no significant skin pathology Can proceed with surgery. Surgery will be scheduled for 1 Time with Patient: Less than 30
--- NOTE | 2024-07-12 15:18 | P.PN ---
Progress Note - Text Progress Note Date: 07/12/24 - Chief Complaint Fall - History of Present Illness Pleasant 79-year-old patient who follows with [facility] Temi Allred.. With Dr. Smith.. Chronic stable medical conditions include hard of hearing with hearing aids, hyperlipidemia, hypertension, primary osteoarthritis. Patient also 25 inches of colon removed 30 years ago due to diverticulitis. Smokes half a pack a day. Also being treated for tremors with on primidone. Patient normally drinks 3 to 4 glasses of wine at night. Yesterday was a bit stressed decided have a bit more. She was wearing this larger slippers and she tripped and fell down. Suffering a fracture to the left ankle. Currently in a Alfonzo wrap. Otherwise patient is rather active with no cardiac symptoms. No cardiac history. July 11: Per Dr. Zapien's team patient's left ankle fracture swelling is to go down. Before surgery can be done. This probably happened next week. Meantime patient stable. On Valium for DT prophylaxis. Tolerating diet. Otherwise comfortable July 12: Remains comfortable in bed. Pain controlled. On Valium 2 mg twice daily for DT prophylaxis. Will decrease to once a day in the morning. Otherwise discussed with patient. Eating fair. Delete that Active Medications Acetaminophen (Acetaminophen Tab 325 Mg Tab) 650 mg PO Q6HR PRN PRN Reason: Mild Pain or Fever > 100.5 Last Admin: 07/12/24 04:53 Dose: 650 mg Atorvastatin Calcium (Atorvastatin 20 Mg Tab) 20 mg PO DAILY [facility] Last Admin: 07/12/24 09:15 Dose: 20 mg Bisoprolol Fumarate (Bisoprolol-Hctz 10-6.25 Mg 1 Each Tab) 1 each PO DAILY [facility] Last Admin: 07/12/24 09:17 Dose: 1 each Diazepam (Diazepam 2 Mg Tab) 2 mg PO DAILY [facility] Enoxaparin Sodium (Enoxaparin 40 Mg/0.4 Ml Syringe) 40 mg SQ DAILY [facility] Last Admin: 07/12/24 09:16 Dose: 40 mg Famotidine (Famotidine 20 Mg Tab) 20 mg PO BID [facility] Last Admin: 07/12/24 09:15 Dose: 20 mg Gabapentin (Gabapentin 300 Mg Cap) 300 mg PO TID [facility] Last Admin: 07/12/24 09:15 Dose: 300 mg Lorazepam (Lorazepam 2 Mg/Ml Inj) 1 mg IV Q1HR PRN PRN Reason: CIWA 10 to 15 Lorazepam (Lorazepam 2 Mg/Ml Inj) 1 mg IV Q2HR PRN PRN Reason: CIWA 8 or 9 Last Admin: 07/10/24 11:48 Dose: 1 mg Losartan Potassium (Losartan 50 Mg Tab) 100 mg PO DAILY [facility] Last Admin: 07/12/24 09:15 Dose: 100 mg Meloxicam (Meloxicam 7.5 Mg Tab) 15 mg PO DAILY [facility] Last Admin: 07/12/24 09:15 Dose: 15 mg Morphine Sulfate (Morphine Sulfate 4 Mg/Ml Syringe) 4 mg IVP Q4HR PRN PRN Reason: Pain Last Admin: 07/11/24 12:19 Dose: 4 mg Naloxone HCl (Naloxone 0.4 Mg/Ml 1 Ml Vial) 0.2 mg IV Q2M PRN PRN Reason: Opioid Reversal Nicotine (Nicotine 14mg/24hr Patch) 1 patch TRANSDERM DAILY [facility] Last Admin: 07/12/24 09:17 Dose: Not Given Ondansetron HCl (Ondansetron 4 Mg/2 Ml Vial) 4 mg IVP Q8HR PRN PRN Reason: Nausea And Vomiting Primidone (Primidone 50 Mg Tab) 50 mg PO HS [facility] Last Admin: 07/11/24 20:58 Dose: 50 mg Thiamine HCl (Thiamine 100 Mg Tab) 100 mg PO DAILY [facility] Last Admin: 07/12/24 09:15 Dose: 100 mg Social history: Is a . Drinks anywhere from 3 to 4 glasses of wine a day. Smokes half a pack a day. Physical examination: VITAL SIGNS: 98.4, 65, 18, 172/83, 98% room air GENERAL: BMI 23.9, laying bed awake appears comfortable EYES: Pupils equal. Conjunctiva anabel l. HEENT: External appearance of nose and ears normal, oral cavity grossly normal. NECK: JVD not raised; masses not palpable. HEART: First and second heart sounds are normal; no edema. LUNGS: Respiratory rate normal; clear to auscultation. ABDOMEN: Soft, nontender, liver spleen not palpable, no masses palpable. PSYCH: Alert and oriented x3; mood and affect anabel l. MUSCULOSKELETAL:No Clubbing/cyanosis;muscles-grossly intact. Evidence of OA in many joints including the hands. Left ankle in a Alfonzo wrap dressing. INVESTIGATIONS, reviewed in the clinical context: July 11: White count 7.7 hemoglobin 12.4 platelets 205 potassium 4.2 creatinine 0.7 White count 8.1 hemoglobin 12.2 platelets 214 sodium 139 potassium 4.4 AST 28 ALT 16 glucose 109 Urine drug screen positive for opiates, methadone EKG tracing personally reviewed by me-normal sinus rhythm. Chest x-ray film personally reviewed by me-unremarkable Left ankle x-ray: Displaced transverse medial malleolus fracture. Suspected posterior malleolus fracture as well. Valgus angulation of the talus. Distal fibular shaft fracture. Soft tissue swelling. Assessment plan: -Acute left ankle fracture at least in 3 places secondary to fall patient is using a large pair of slippers and tripped and fell. Currently in a strap. Due for surgery as per orthopedics being followed by Dr. Rupali Souza orthopedic team surgery sometime next week after swelling is gone down. -Alcohol use disorder. Patient averages 3 to 4 glasses of wine at night. Was up to 5 glasses yesterday. CIWA protocol. Decrease Valium 2 mg to daily for DT prophylaxis. thiamine 100 mg a day. -Essential tremor Primidone 50 mg nightly -Primary osteoarthritis multiple joints Mobic 15 mg a day -Essential hypertension Bisoprolol hydrochlorothiazide 04/04.251 tablet a day losartan 100 mg a day -Hyperlipidemia Simvastatin 40 mg a day Decrease Valium to once a day. Other medication treatment plan to continue. Thank you Dr. Zapien Past Medical History Past Medical History: GERD/Reflux, Hearing Disorder / Deafness, Hyperlipidemia, Hypertension, Osteoarthritis (OA) Additional Past Medical History / Comment(s): Hard of hearing. History of Any Multi-Drug Resistant Organisms: None Reported Past Surgical History: Bowel Resection Additional Past Surgical History / Comment(s): 25 inches of colon removed 30 yrs ago due to diverticulititis. Past Anesthesia/Blood Transfusion Reactions: No Reported Reaction Past Psychological History: No Psychological Hx Reported Smoking Status: Current every day smoker Past Alcohol Use History: Daily Additional Past Alcohol Use History / Comment(s): Started smoking at 40 yrs old, quit 6 yrs ago, has resumed recently, states she smokes about 8 cigarettes a day. Drinks 3 glasses of wine daily. Past Drug Use History: None Reported
[2024-07-13] MEDS: diazePAM 2 MG TAB PO SCH (09:08)
[2024-07-13] MEDS: LACTATED RINGERS 1,000 ML IV SCH (14:16)
--- NOTE | 2024-07-13 17:49 | P.PN ---
Progress Note - Text Progress Note Date: 07/13/24 - Chief Complaint Fall - History of Present Illness Pleasant 79-year-old patient who follows with [facility] [employer] [facility] Temi Allred.. With Dr. Smith.. Chronic stable medical conditions include hard of hearing with hearing aids, hyperlipidemia, hypertension, primary osteoarthritis. Patient also 25 inches of colon removed 30 years ago due to diverticulitis. Smokes half a pack a day. Also being treated for tremors with on primidone. Patient normally drinks 3 to 4 glasses of wine at night. Yesterday was a bit stressed decided have a bit more. She was wearing this larger slippers and she tripped and fell down. Suffering a fracture to the left ankle. Currently in a Alfonzo wrap. Otherwise patient is rather active with no cardiac symptoms. No cardiac history. July 11: Per Dr. Zapien's team patient's left ankle fracture swelling is to go down. Before surgery can be done. This probably happened next week. Meantime patient stable. On Valium for DT prophylaxis. Tolerating diet. Otherwise comfortable July 12: Remains comfortable in bed. Pain controlled. On Valium 2 mg twice daily for DT prophylaxis. Will decrease to once a day in the morning. Otherwise discussed with patient. Eating fair. July 13: In bed. Comfortable. No DVT signs. Stop Valium. Per orthopedic plan for surgery tomorrow. Questions answered. Likely stable for surgery Active Medications Acetaminophen (Acetaminophen Tab 325 Mg Tab) 650 mg PO Q6HR PRN PRN Reason: Mild Pain or Fever > 100.5 Last Admin: 07/12/24 04:53 Dose: 650 mg Atorvastatin Calcium (Atorvastatin 20 Mg Tab) 20 mg PO [facility] Bisoprolol Fumarate (Bisoprolol-Hctz 10-6.25 Mg 1 Each Tab) 1 each PO DAILY [facility] Last Admin: 07/13/24 12:00 Dose: 1 each Enoxaparin Sodium (Enoxaparin 40 Mg/0.4 Ml Syringe) 40 mg SQ DAILY [facility] Last Admin: 07/13/24 09:08 Dose: 40 mg Famotidine (Famotidine 20 Mg Tab) 20 mg PO BID [facility] Last Admin: 07/13/24 09:07 Dose: Not Given Gabapentin (Gabapentin 300 Mg Cap) 300 mg PO TID [facility] Last Admin: 07/13/24 17:13 Dose: 300 mg Hydromorphone HCl (Hydromorphone 0.5 Mg/0.5 Ml Syringe) 0.5 mg IVP Q5M PRN PRN Reason: Phase 1 or 2 - Pain Control Stop: 07/14/24 23:00 Lactated Ringer's (Lactated Ringers) 1,000 mls @ 20 mls/hr IV .Q24H [facility] Last Admin: 07/13/24 14:16 Dose: Not Given Lorazepam (Lorazepam 2 Mg/Ml Inj) 1 mg IV Q1HR PRN PRN Reason: CIWA 10 to 15 Lorazepam (Lorazepam 2 Mg/Ml Inj) 1 mg IV Q2HR PRN PRN Reason: CIWA 8 or 9 Last Admin: 07/10/24 11:48 Dose: 1 mg Losartan Potassium (Losartan 50 Mg Tab) 100 mg PO DAILY [facility] Last Admin: 07/13/24 09:07 Dose: 100 mg Meloxicam (Meloxicam 7.5 Mg Tab) 15 mg PO DAILY [facility] Last Admin: 07/13/24 09:07 Dose: 15 mg Morphine Sulfate (Morphine Sulfate 4 Mg/Ml Syringe) 4 mg IVP Q4HR PRN PRN Reason: Pain Last Admin: 07/11/24 12:19 Dose: 4 mg Naloxone HCl (Naloxone 0.4 Mg/Ml 1 Ml Vial) 0.2 mg IV Q2M PRN PRN Reason: Opioid Reversal Nicotine (Nicotine 14mg/24hr Patch) 1 patch TRANSDERM DAILY [facility] Last Admin: 07/13/24 09:06 Dose: 1 patch Ondansetron HCl (Ondansetron 4 Mg/2 Ml Vial) 4 mg IVP Q8HR PRN PRN Reason: Nausea And Vomiting Primidone (Primidone 50 Mg Tab) 50 mg PO HS [facility] Last Admin: 07/12/24 20:48 Dose: 50 mg Thiamine HCl (Thiamine 100 Mg Tab) 100 mg PO DAILY [facility] Last Admin: 07/13/24 09:06 Dose: 100 mg Social history: Is a . Drinks anywhere from 3 to 4 glasses of wine a day. Smokes half a pack a day. Physical examination: VITAL SIGNS: 98.6, 60, 17, 133 x 68, 97% room air GENERAL: BMI 23.9, laying bed awake comfortable EYES: Pupils equal. Conjunctiva anabel l. HEENT: External appearance of nose and ears normal, oral cavity grossly normal. NECK: JVD not raised; masses not palpable. HEART: First and second heart sounds are normal; no edema. LUNGS: Respiratory rate normal; clear to auscultation. ABDOMEN: Soft, nontender, liver spleen not palpable, no masses palpable. PSYCH: Alert and oriented x3; mood and affect anabel l. MUSCULOSKELETAL:No Clubbing/cyanosis;muscles-grossly intact. Evidence of OA in many joints including the hands. Left ankle in a Alfonzo wrap dressing. INVESTIGATIONS, reviewed in the clinical context: July 11: White count 7.7 hemoglobin 12.4 platelets 205 potassium 4.2 creatinine 0.7 White count 8.1 hemoglobin 12.2 platelets 214 sodium 139 potassium 4.4 AST 28 ALT 16 glucose 109 Urine drug screen positive for opiates, methadone EKG tracing personally reviewed by me-normal sinus rhythm. Chest x-ray film personally reviewed by me-unremarkable Left ankle x-ray: Displaced transverse medial malleolus fracture. Suspected posterior malleolus fracture as well. Valgus angulation of the talus. Distal fibular shaft fracture. Soft tissue swelling. Assessment plan: -Acute left ankle fracture at least in 3 places secondary to fall patient is using a large pair of slippers and tripped and fell. Currently in a strap. Due for surgery as per orthopedics being followed by Dr. Rupali Souza orthopedic team surgery sometime next week after swelling is gone down. -Alcohol use disorder. Patient averages 3 to 4 glasses of wine at night. Was up to 5 glasses yesterday. CIWA protocol. Decrease Valium 2 mg to daily for DT prophylaxis. thiamine 100 mg a day. -Essential tremor Primidone 50 mg nightly -Primary osteoarthritis multiple joints Mobic 15 mg a day -Essential hypertension Bisoprolol hydrochlorothiazide 04/04.251 tablet a day losartan 100 mg a day -Hyperlipidemia Simvastatin 40 mg a day Stop Valium. Stable. Continue current medications. N.p.o. after midnight for surgery tomorrow. Thank you Dr. Zapien Past Medical History Past Medical History: GERD/Reflux, Hearing Disorder / Deafness, Hyperlipidemia, Hypertension, Osteoarthritis (OA) Additional Past Medical History / Comment(s): Hard of hearing. History of Any Multi-Drug Resistant Organisms: None Reported Past Surgical History: Bowel Resection Additional Past Surgical History / Comment(s): 25 inches of colon removed 30 yrs ago due to diverticulititis. Past Anesthesia/Blood Transfusion Reactions: No Reported Reaction Past Psychological History: No Psychological Hx Reported Smoking Status: Current every day smoker Past Alcohol Use History: Daily Additional Past Alcohol Use History / Comment(s): Started smoking at 40 yrs old, quit 6 yrs ago, has resumed recently, states she smokes about 8 cigarettes a day. Drinks 3 glasses of wine daily. Past Drug Use History: None Reported
[2024-07-13] MEDS: DEXAMETHASONE SOD PHOSPHATE 4 MG/ML 1 ML VIAL IV ONE (20:08)
[2024-07-13] MEDS: ATORVASTATIN 20 MG TAB PO SCH (20:25)
--- NOTE | 2024-07-14 11:33 | P.PN ---
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 With Dr. Smith.. Chronic stable medical conditions include hard of hearing with hearing aids, hyperlipidemia, hypertension, primary osteoarthritis. Patient also 25 inches of colon removed 30 years ago due to diverticulitis. Smokes half a pack a day. Also being treated for tremors with on primidone. Patient normally drinks 3 to 4 glasses of wine at night. Yesterday was a bit stressed decided have a bit more. She was wearing this larger slippers and she tripped and fell down. Suffering a fracture to the left ankle. Currently in a Alfonzo wrap. Otherwise patient is rather active with no cardiac symptoms. No cardiac history. July 11: Per Dr. Zapien's team patient's left ankle fracture swelling is to go down. Before surgery can be done. This probably happened next week. Meantime patient stable. On Valium for DT prophylaxis. Tolerating diet. Otherwise comfortable July 12: Remains comfortable in bed. Pain controlled. On Valium 2 mg twice daily for DT prophylaxis. Will decrease to once a day in the morning. Otherwise discussed with patient. Eating fair. July 13: In bed. Comfortable. No DVT signs. Stop Valium. Per orthopedic plan for surgery tomorrow. Questions answered. Likely stable for surgery July 14: Sitting up in bed. Pain controlled. Some itching at the fracture site. N.p.o. for surgery this afternoon. Otherwise feeling well. Active Medications Acetaminophen (Acetaminophen Tab 325 Mg Tab) 650 mg PO Q6HR PRN PRN Reason: Mild Pain or Fever > 100.5 Last Admin: 07/13/24 20:25 Dose: 650 mg Atorvastatin Calcium (Atorvastatin 20 Mg Tab) 20 mg PO HS [facility] Last Admin: 07/13/24 20:25 Dose: 20 mg Bisoprolol Fumarate (Bisoprolol-Hctz 10-6.25 Mg 1 Each Tab) 1 each PO DAILY [facility] Last Admin: 07/14/24 09:40 Dose: 1 each Enoxaparin Sodium (Enoxaparin 40 Mg/0.4 Ml Syringe) 40 mg SQ DAILY [facility] Last Admin: 07/14/24 09:15 Dose: Not Given Famotidine (Famotidine 20 Mg Tab) 20 mg PO BID [facility] Last Admin: 07/14/24 09:40 Dose: 20 mg Gabapentin (Gabapentin 300 Mg Cap) 300 mg PO TID [facility] Last Admin: 07/14/24 09:40 Dose: 300 mg Hydromorphone HCl (Hydromorphone 0.5 Mg/0.5 Ml Syringe) 0.5 mg IVP Q5M PRN PRN Reason: Phase 1 or 2 - Pain Control Stop: 07/14/24 23:00 Lactated Ringer's (Lactated Ringers) 1,000 mls @ 20 mls/hr IV .Q24H [facility] Last Admin: 07/13/24 14:16 Dose: Not Given Lorazepam (Lorazepam 2 Mg/Ml Inj) 1 mg IV Q1HR PRN PRN Reason: CIWA 10 to 15 Lorazepam (Lorazepam 2 Mg/Ml Inj) 1 mg IV Q2HR PRN PRN Reason: CIWA 8 or 9 Last Admin: 07/13/24 22:33 Dose: 1 mg Losartan Potassium (Losartan 50 Mg Tab) 100 mg PO DAILY [facility] Last Admin: 07/14/24 09:40 Dose: 100 mg Meloxicam (Meloxicam 7.5 Mg Tab) 15 mg PO DAILY [facility] Last Admin: 07/14/24 09:40 Dose: 15 mg Morphine Sulfate (Morphine Sulfate 4 Mg/Ml Syringe) 4 mg IVP Q4HR PRN PRN Reason: Pain Last Admin: 07/11/24 12:19 Dose: 4 mg Naloxone HCl (Naloxone 0.4 Mg/Ml 1 Ml Vial) 0.2 mg IV Q2M PRN PRN Reason: Opioid Reversal Nicotine (Nicotine 14mg/24hr Patch) 1 patch TRANSDERM DAILY [facility] Last Admin: 07/14/24 09:41 Dose: Not Given Ondansetron HCl (Ondansetron 4 Mg/2 Ml Vial) 4 mg IVP Q8HR PRN PRN Reason: Nausea And Vomiting Primidone (Primidone 50 Mg Tab) 50 mg PO HS [facility] Last Admin: 07/13/24 20:25 Dose: 50 mg Thiamine HCl (Thiamine 100 Mg Tab) 100 mg PO DAILY [facility] Last Admin: 07/14/24 09:41 Dose: 100 mg Social history: Is a . Drinks anywhere from 3 to 4 glasses of wine a day. Smokes half a pack a day. Physical examination: VITAL SIGNS: 97.6, 70, 16, 132 x 64, 96% room air GENERAL: BMI 23.9, bed, comfortable EYES: Pupils equal. Conjunctiva anabel l. HEENT: External appearance of nose and ears normal, oral cavity grossly normal. NECK: JVD not raised; masses not palpable. HEART: First and second heart sounds are normal; no edema. LUNGS: Respiratory rate normal; clear to auscultation. ABDOMEN: Soft, nontender, liver spleen not palpable, no masses palpable. PSYCH: Alert and oriented x3; mood and affect anabel l. MUSCULOSKELETAL:No Clubbing/cyanosis;muscles-grossly intact. Evidence of OA in many joints including the hands. Left ankle in a Alfonzo wrap dressing. INVESTIGATIONS, reviewed in the clinical context: July 11: White count 7.7 hemoglobin 12.4 platelets 205 potassium 4.2 creatinine 0.7 White count 8.1 hemoglobin 12.2 platelets 214 sodium 139 potassium 4.4 AST 28 ALT 16 glucose 109 Urine drug screen positive for opiates, methadone EKG tracing personally reviewed by me-normal sinus rhythm. Chest x-ray film personally reviewed by me-unremarkable Left ankle x-ray: Displaced transverse medial malleolus fracture. Suspected posterior malleolus fracture as well. Valgus angulation of the talus. Distal fibular shaft fracture. Soft tissue swelling. Assessment plan: -Acute left ankle fracture at least in 3 places secondary to fall patient is using a large pair of slippers and tripped and fell. Currently in a strap. Due for surgery as per orthopedics being followed by Dr. Rupali Souza orthopedic team surgery sometime next week after swelling is gone down. -Alcohol use disorder. Patient averages 3 to 4 glasses of wine at night. Was up to 5 glasses yesterday. CIWA protocol. Decrease Valium 2 mg to daily for DT prophylaxis. thiamine 100 mg a day. -Essential tremor Primidone 50 mg nightly -Primary osteoarthritis multiple joints Mobic 15 mg a day -Essential hypertension Bisoprolol hydrochlorothiazide 04/04.251 tablet a day losartan 100 mg a day -Hyperlipidemia Simvastatin 40 mg a day N.p.o. for surgery today. Discussed Thank you Dr. Zapien Past Medical History Past Medical History: GERD/Reflux, Hearing Disorder / Deafness, Hyperlipidemia, Hypertension, Osteoarthritis (OA) Additional Past Medical History / Comment(s): Hard of hearing. History of Any Multi-Drug Resistant Organisms: None Reported Past Surgical History: Bowel Resection Additional Past Surgical History / Comment(s): 25 inches of colon removed 30 yrs ago due to diverticulititis. Past Anesthesia/Blood Transfusion Reactions: No Reported Reaction Past Psychological History: No Psychological Hx Reported Smoking Status: Current every day smoker Past Alcohol Use History: Daily Additional Past Alcohol Use History / Comment(s): Started smoking at 40 yrs old, quit 6 yrs ago, has resumed recently, states she smokes about 8 cigarettes a day. Drinks 3 glasses of wine daily. Past Drug Use History: None Reported
[2024-07-14] MEDS: IV FLUID CONTINUATION 1,000 ML IV ONE (15:15)
[2024-07-14] MEDS: ONDANSETRON 4 MG/2 ML VIAL IVP PRN (15:40)
[2024-07-14] MEDS: MIDAZOLAM 2 MG/2 ML VIAL IV ONE (15:47)
[2024-07-14] MEDS ORDERED: ROPIVACAINE 5 MG/ML 30 ML VIAL ONE (16:32)
[2024-07-14] MEDS ORDERED: fentaNYL (PF) 50 MCG/ML 2 ML AMP ONE (16:32)
[2024-07-14] MEDS ORDERED: GLYCOPYRROLATE 0.2 MG/ML 2 ML VIAL ONE (16:32)
[2024-07-14] MEDS ORDERED: ROCURONIUM 10 MG/ML (5 ML VIAL) IV ONE (16:32)
[2024-07-14] MEDS ORDERED: PROPOFOL 10 MG/ML 20 ML VIAL IV ONE (16:32)
[2024-07-14] MEDS ORDERED: LIDOCAINE 1% INJ 10MG/ML (20 ML MDV) ONE (16:32)
[2024-07-14] MEDS ORDERED: DEXAMETHASONE SOD PHOSPHATE 10 MG/ML 1 ML VIAL ONE (16:32)
[2024-07-14] MEDS ORDERED: SODIUM CHLORIDE 0.9% (PF) 10 ML VIAL ONE (16:32)
[2024-07-14] MEDS ORDERED: DEXAMETHASONE SOD PHOSPHATE 4 MG/ML 1 ML VIAL ONE (16:32)
[2024-07-14] MEDS ORDERED: NEOSTIGMINE 1 MG/ML 10 ML VIAL ONE (16:32)
[2024-07-14] MEDS ORDERED: SUCCINYLCHOLINE CHLORIDE 200 MG/10 ML VIAL IV ONE (16:32)
[2024-07-14] MEDS: ceFAZolin 1,000 MG VIAL IVPB ONE (17:05)
--- NOTE | 2024-07-14 17:54 | P.ANPRN ---
Procedure Note - Anesthesia - Nerve Block Performed Left Adductor Canal Single Time Out Performed: Yes Date of Procedure: 07/14/24 Procedure Start Time: 15:47 Procedure Stop Time: 15:54 Location of Patient: PreOp Indication: Acute Post-Operative Pain, Requested by Surgeon Sedation Type: Sedate with meaningful contact maintained Preparation: Sterile Prep Position: Supine Needle Types: Pajunk Needle Gauge: 21 Ultrasound used to visualize needle placement: Yes Ultrasound used to observe medication spread: Yes Injectate: 0.5% Ropivacaine (see comment for volume) (20 ml +10 ml NS + 4 mg Dexamethasone) Blood Aspirated: No Pain Paresthesia on Injection Noted: No Resistance on Injection: Normal Image Stored and Saved: Yes Events: Uneventful and Well Tolerated
--- NOTE | 2024-07-14 17:55 | P.ANPRN ---
Procedure Note - Anesthesia - Nerve Block Performed Left Popliteal Single Time Out Performed: Yes Date of Procedure: 07/14/24 Procedure Start Time: 15:55 Procedure Stop Time: 16:03 Location of Patient: PreOp Indication: Acute Post-Operative Pain, Requested by Surgeon Sedation Type: Sedate with meaningful contact maintained Preparation: Sterile Prep Position: Right Lateral Needle Types: Pajunk Needle Gauge: 21 Ultrasound used to visualize needle placement: Yes Ultrasound used to observe medication spread: Yes Injectate: 0.5% Ropivacaine (see comment for volume) (20 ml + 10 ml NS + 4 mg Dexamethasone) Blood Aspirated: No Pain Paresthesia on Injection Noted: No Resistance on Injection: Normal Image Stored and Saved: Yes Events: Uneventful and Well Tolerated
--- NOTE | 2024-07-14 18:22 | XR ---
EXAMINATION TYPE: XR ankle limited LT, FL guidance operating room DATE OF EXAM: 07/14/2024 5:59 PM COMPARISON: Pre Operative Images if available both CT/MRI or plain film CLINICAL INDICATION: Female, 79 years old with history of ORIF LEFT ANKLE FRACTURE; TECHNIQUE: XR ankle limited LT, FL guidance operating room, multiple fluoroscopic images provided for procedure. Total fluoroscopy time: 50.8 seconds Total submitted images to PACS: 3 DAP: 0.4490 mGym2 Gycm2 uGym2 cGycm2 or equivalent. FINDINGS: Fluoroscopic images during internal fixation demonstrate hardware in appropriate position. Hardware a ppears intact. No immediate complication identified. IMPRESSION: 1. No evidence for intraoperative complication. 2. Please see the operative/procedural note for further details. [facility], , 07/14/2024 6:20 PM
--- NOTE | 2024-07-14 18:23 | P.OP ---
Date of Procedure: 07/14/24 Preoperative Diagnosis: Displaced left trimalleolar ankle fracture Postoperative Diagnosis: Displaced left trimalleolar ankle fracture Procedure(s) Performed: Open reduction with internal fixation left trimalleolar ankle fracture Implants: Haim one third tubular plate, Rhodelia 3.5 mm locking and nonlocking screws, Haim 4.0 mm cannulated screws x 2 Anesthesia: KWAKUA Surgeon: Constantino Cintron Estimated Blood Loss (ml): 10 Pathology: none sent Condition: stable Disposition: PACU Description of Procedure: Prior to the patient being brought to the operative room, anesthesia administered a nerve block on the left lower extremity. The patient was brought into the operating room and placed on the table in the supine position. Timeout was taken to confirm correct patient identifiers, correct laterality of surgery, and correct procedure. When all staff in the room were in agreement the timeout, the patient was induced and placed under general esthesia. A well- padded tourniquet was placed on the left thigh and a wedge Neath the left hip to internally rotate the left leg. The left leg was prepped and draped in the usual manner. The left leg was exsanguinated and the tourniquet inflated to 250 mmHg. Attention was directed over the lateral ankle where a linear incision was made over the lateral malleolus. The incision was deepened down to the subcutaneous tissue careful to identify, void, and retract any neurovascular structures and cauterize any bleeding vessels. Dissection was continued down to the fracture site through the subcutaneous layer. Soft tissue was reflected anteriorly and posteriorly to expose the fracture. There was significant comminution of the fracture. The area was irrigated to remove all hematoma. There was a large anterior lateral butterfly fragment that was repositioned in the fracture and then temporarily held in place of the wire. A 9 hole one third tubular plate was then positioned laterally across the fracture. Fluoroscopy confirmed the proper position of the plate. Temporary fixation was done proximally and then a dental pick was used to distract the distal fragment until the fibula was back out to length. Once back out to length, another threaded olive wire was utilized to the plate to maintain the length and the correction. A nonlocking screw was placed through one of the holes in the plate proximal to the fracture. This allowed the plate to be drawn down to the level of the bone. Then 2 additional locking screws were placed through the holes proximal to the fracture. Then attention was directed to the distal aspect of the plate where the locking screws were placed at the holes distal to the fracture. These holes were drilled under direct fluoroscopic visualization so that the drill bit did not enter the lateral gutter of the ankle joint. 2 locking screws were placed. Fluoroscopic imaging showed proper placement of the hardware as well as maintaining length of the fibular fracture. Then attention is directed to the medial malleolus fracture which was manipulated and reduced under fluoroscopy. Once reduced a clamp was used to maintain the position. A guidewire for a 4.0 cannulated screw was inserted to the tip of the medial malleolus and advanced across the fracture into the tibia. Imaging showed proper placement of the wire on the AP and lateral views. 4.0 mm partially-threaded, cannulated screw was inserted across the guidewire and advanced by hand until the head engaged the bone of the medial malleolus and provided compression across the fracture. Then attention directed back to the lateral malleoli are fracture for placement of syndesmotic screws. The syndesmosis was visualized so was able to be reduced and clamped in place. Two 3.5 mm fully threaded screws were placed through the plate and advanced from lateral to medial with slight anterior angulation. The screws were placed Quadra cortically and provided compression and reduction of the syndesmosis while holding the ankle maximally dorsiflexed. Then attention directed to the anterior ankle for the placement of the anterior to posterior screw for the posterior fragment. Under fluoroscopy, a guidewire was inserted anterior lateral and adjusted so that the posterior fragment would be captured. The wire was advanced to the fracture line as indicated on the lateral view. And then the ankle was maximally dorsiflexed and the wire advanced. This indicated adequate reduction of the fragment and maintain contour the joint line. Small stab incision was made through the skin and the soft tissue retracted so that the screw would incarcerated in the neurovascular tendinous structures. The screws advanced until the had engaged the cortex of the tibia and exited out the posterior tibia and provided compression of the fracture. Final fluoroscopic imaging showed anatomic alignment of the ankle joint and proper placement of all the hardware. All wounds were thoroughly irrigated with antibiotic saline. Deep tissue closure on the lateral incision was done with 2- 0 Vicryl. Subcutaneous closure on the lateral incision was done with 4-0 Monocryl. Skin closure was done with elizabeth on all incisions. Arthrex jumpstart was placed over all incisions. A bulky dry dressing was applied to the left ankle. The tourniquet was released and capillary refill returned all digits of the foot. A bulky Pitts dressing was applied to the leg. Then a well-padded, well molded plaster posterior mold/sugar-tong splint was placed on the leg. The ankle was held in neutral position until the splint was fully dried. Then anesthesia was reversed and the patient was taken recovery with vital signs stable.
[2024-07-14] MEDS: HYDROmorphone 0.5 MG/0.5 ML SYRINGE IVP PRN (18:27)
[2024-07-15 06:24] LABS: Basophils % (A) 0 %; Eosinophils % (A) 0 %; HCT 39.5 % (34.0-46.0); HGB 12.9 gm/dL (11.4-16.0); Lymphocytes # (A) 1.2 k/uL (1.0-4.8); Lymphocytes % (A) 15 %; MCH 33.7 pg (25.0-35.0); MCHC 32.7 g/dL (31.0-37.0); MCV 103.3 fL (80.0-100.0); Macrocytosis Slight; Monocytes # (A) 0.2 k/uL (0-1.0); Monocytes % (A) 3 %; Neutrophils # (A) 6.2 k/uL (1.3-7.7); Neutrophils % (A) 81 %; Platelet Count 248 k/uL (150-450); RBC 3.83 m/uL (3.80-5.40); RDW 12.5 % (11.5-15.5); WBC 7.6 k/uL (3.8-10.6)
[2024-07-15 06:59] LABS: African American GFR (CKD) >90 (>60 ml/min/1.73 sqM); Anion Gap 11 mmol/L; Blood Urea Nitrogen 26 mg/dL (7-17); Calcium 9.3 mg/dL (8.4-10.2); Carbon Dioxide 22 mmol/L (22-30); Chloride 103 mmol/L (98-107); Glucose 120 mg/dL (74-99); Non-African American GFR(CKD) 79 (>60 ml/min/1.73 sqM); Potassium 4.6 mmol/L (3.5-5.1); Sodium 136 mmol/L (137-145)
--- NOTE | 2024-07-15 19:22 | P.PN ---
Progress Note - Text Progress Note Date: 07/15/24 - Chief Complaint Fall - History of Present Illness Pleasant 79-year-old patient who follows with [employer] SUPER[employer] Temi Allred.. With Dr. Smith.. Chronic stable medical conditions include hard of hearing with hearing aids, hyperlipidemia, hypertension, primary osteoarthritis. Patient also 25 inches of colon removed 30 years ago due to diverticulitis. Smokes half a pack a day. Also being treated for tremors with on primidone. Patient normally drinks 3 to 4 glasses of wine at night. Yesterday was a bit stressed decided have a bit more. She was wearing this larger slippers and she tripped and fell down. Suffering a fracture to the left ankle. Currently in a Alfonzo wrap. Otherwise patient is rather active with no cardiac symptoms. No cardiac history. July 11: Per Dr. Zapien's team patient's left ankle fracture swelling is to go down. Before surgery can be done. This probably happened next week. Meantime patient stable. On Valium for DT prophylaxis. Tolerating diet. Otherwise comfortable July 12: Remains comfortable in bed. Pain controlled. On Valium 2 mg twice daily for DT prophylaxis. Will decrease to once a day in the morning. Otherwise discussed with patient. Eating fair. July 13: In bed. Comfortable. No DVT signs. Stop Valium. Per orthopedic plan for surgery tomorrow. Questions answered. Likely stable for surgery July 14: Sitting up in bed. Pain controlled. Some itching at the fracture site. N.p.o. for surgery this afternoon. Otherwise feeling well. July 15: Yesterday evening patient underwent open reduction fixation of the left ankle trimalleolar fracture. Pain is controlled. Tolerated diet. Pending to go to rehab. Active Medications Acetaminophen (Acetaminophen Tab 325 Mg Tab) 650 mg PO Q6HR PRN PRN Reason: Mild Pain or Fever > 100.5 Last Admin: 07/15/24 15:41 Dose: 650 mg Atorvastatin Calcium (Atorvastatin 20 Mg Tab) 20 mg PO HS [facility] Last Admin: 07/14/24 21:16 Dose: 20 mg Bisoprolol Fumarate (Bisoprolol-Hctz 10-6.25 Mg 1 Each Tab) 1 each PO DAILY [facility] Last Admin: 07/15/24 09:31 Dose: 1 each Enoxaparin Sodium (Enoxaparin 40 Mg/0.4 Ml Syringe) 40 mg SQ DAILY [facility] Last Admin: 07/15/24 09:31 Dose: 40 mg Famotidine (Famotidine 20 Mg Tab) 20 mg PO BID [facility] Last Admin: 07/15/24 09:31 Dose: 20 mg Gabapentin (Gabapentin 300 Mg Cap) 300 mg PO TID [facility] Last Admin: 07/15/24 15:42 Dose: 300 mg Lactated Ringer's (Lactated Ringers) 1,000 mls @ 20 mls/hr IV .Q24H [facility] Last Admin: 07/15/24 15:46 Dose: 20 mls/hr Cefazolin Sodium 2 gm/ Sodium (Chloride) 50 mls @ 100 mls/hr IVPB Q12HR [facility]; Protocol Last Admin: 07/15/24 09:30 Dose: 100 mls/hr Lorazepam (Lorazepam 2 Mg/Ml Inj) 1 mg IV Q1HR PRN PRN Reason: CIWA 10 to 15 Lorazepam (Lorazepam 2 Mg/Ml Inj) 1 mg IV Q2HR PRN PRN Reason: CIWA 8 or 9 Last Admin: 07/13/24 22:33 Dose: 1 mg Losartan Potassium (Losartan 50 Mg Tab) 100 mg PO DAILY [facility] Last Admin: 07/15/24 09:31 Dose: 100 mg Meloxicam (Meloxicam 7.5 Mg Tab) 15 mg PO DAILY [facility] Last Admin: 07/15/24 09:31 Dose: 15 mg Morphine Sulfate (Morphine Sulfate 4 Mg/Ml Syringe) 4 mg IVP Q4HR PRN PRN Reason: Pain Last Admin: 07/11/24 12:19 Dose: 4 mg Naloxone HCl (Naloxone 0.4 Mg/Ml 1 Ml Vial) 0.2 mg IV Q2M PRN PRN Reason: Opioid Reversal Nicotine (Nicotine 14mg/24hr Patch) 1 patch TRANSDERM DAILY [facility] Last Admin: 07/15/24 09:31 Dose: 1 patch Ondansetron HCl (Ondansetron 4 Mg/2 Ml Vial) 4 mg IVP Q8HR PRN PRN Reason: Nausea And Vomiting Last Admin: 07/14/24 15:40 Dose: 4 mg Primidone (Primidone 50 Mg Tab) 50 mg PO HS [facility] Last Admin: 07/14/24 21:15 Dose: 50 mg Thiamine HCl (Thiamine 100 Mg Tab) 100 mg PO DAILY [facility] Last Admin: 07/15/24 09:32 Dose: 100 mg Social history: Is a . Drinks anywhere from 3 to 4 glasses of wine a day. Smokes half a pack a day. Physical examination: VITAL SIGNS: 97.5, 55, 16, 126 x 67, 96% room air GENERAL: BMI 23.9, bed, comfortable EYES: Pupils equal. Conjunctiva anabel l. HEENT: External appearance of nose and ears normal, oral cavity grossly normal. NECK: JVD not raised; masses not palpable. HEART: First and second heart sounds are normal; no edema. LUNGS: Respiratory rate normal; clear to auscultation. ABDOMEN: Soft, nontender, liver spleen not palpable, no masses palpable. PSYCH: Alert and oriented x3; mood and affect anabel l. MUSCULOSKELETAL:No Clubbing/cyanosis;muscles-grossly intact. Evidence of OA in many joints including the hands. Left ankle i in a support INVESTIGATIONS, reviewed in the clinical context: July 15: White count 7.6 hemoglobin 12.9 platelets 248 potassium 4.6 creatinine 0.73 July 11: White count 7.7 hemoglobin 12.4 platelets 205 potassium 4.2 creatinine 0.7 White count 8.1 hemoglobin 12.2 platelets 214 sodium 139 potassium 4.4 AST 28 ALT 16 glucose 109 Urine drug screen positive for opiates, methadone EKG tracing personally reviewed by me-normal sinus rhythm. Chest x-ray film personally reviewed by me-unremarkable Left ankle x-ray: Displaced transverse medial malleolus fracture. Suspected posterior malleolus fracture as well. Valgus angulation of the talus. Distal fibular shaft fracture. Soft tissue swelling. Assessment plan: -Acute left ankle fracture at least in 3 places secondary to fall patient is using a large pair of slippers and tripped and fell. C Open reduction internal fixation of displaced left trimalleolar fracture of the ankle, by Dr. Cintron-July 14 -Alcohol use disorder. Patient averages 3 to 4 glasses of wine at night. Was up to 5 glasses a day before presentation. [place] protocol. Initially given Valium that was discontinued. thiamine 100 mg a day. -Essential tremor Primidone 50 mg nightly -Primary osteoarthritis multiple joints Mobic 15 mg a day -Essential hypertension Bisoprolol hydrochlorothiazide 04/04.251 tablet a day losartan 100 mg a day -Hyperlipidemia Simvastatin 40 mg a day Tolerating diet. Pending rehab. Thank you Dr. Zapien Past Medical History Past Medical History: GERD/Reflux, Hearing Disorder / Deafness, Hyperlipidemia, Hypertension, Osteoarthritis (OA) Additional Past Medical History / Comment(s): Hard of hearing. History of Any Multi-Drug Resistant Organisms: None Reported Past Surgical History: Bowel Resection Additional Past Surgical History / Comment(s): 25 inches of colon removed 30 yrs ago due to diverticulititis. Past Anesthesia/Blood Transfusion Reactions: No Reported Reaction Past Psychological History: No Psychological Hx Reported Smoking Status: Current every day smoker Past Alcohol Use History: Daily Additional Past Alcohol Use History / Comment(s): Started smoking at 40 yrs old, quit 6 yrs ago, has resumed recently, states she smokes about 8 cigarettes a day. Drinks 3 glasses of wine daily. Past Drug Use History: None Reported
[2024-07-16 07:53] VITALS: BP 125/67; PULSE 58; RESP 17; TEMP 97.7
[2024-07-16] MEDS: methocarbamoL 500 MG TAB PO PRN (08:02)
--- NOTE | 2024-07-16 09:38 | P.DS ---
Providers Date of admission: 07/10/24 02:37 Expected date of discharge: 07/16/24 Attending physician: Govind Zapien Consults: 07/10/24 02:37 Consult Physician Routine Consulting Provider: Garrett Clarke Consult Reason/Comments: medical management Do you want consulting provider notified?: Yes Primary care physician: Spencer Smith - Discharge Diagnosis(es) (1) Closed left ankle fracture Current Visit: Yes Status: Acute (2) Displaced trimalleolar fracture of left lower leg, initial encounter for closed fracture Current Visit: Yes Status: Acute Hospital Course: This is a 79 year-old female who is admitted for a left ankle fracture. Patient is seen and evaluated at bedside today. Patient states that she fell at home last night after tripping on her slipper. Patient presented to the emergency room via EMS and x-rays revealed a comminuted fracture dislocation of the left ankle. Patient states that she does live alone. Patient states that her pain is controlled and she admits to chronic numbness in bilateral feet and hands from a history of neuropathy. Patient has been started on CIWA protocol as she admits to daily alcohol use. Patient denies hitting her head or any loss of consciousness. Patient denies being on any blood thinners. Patient's past medical history is significant for GERD, hearing disorder, hyperlipidemia, hypertension and osteoarthritis. The patient is taken to surgery with Dr. Constantino Cintron on 07/14/2024. She underwent open reduction and internal fixation of the left trimalleolar fracture. The procedure is performed without complication or sequelae. The patient is doing well postoperatively. It is recommended she be discharged to inpatient rehab. The patient is discharged to [facility] inpatient rehab today in stable condition. She is to maintain nonweightbearing to the left lower extremity. Please see med rec for accurate list of home medications. Patient Condition at Discharge: Stable Plan - Discharge Summary New Discharge Prescriptions: New Baclofen 10 mg PO Q8H PRN #30 tab PRN Reason: Spasms Meloxicam 7.5 mg PO DAILY #30 tab HYDROcodone/APAP 5-325MG [Russell 5] 1 each PO Q6HR PRN #28 tab PRN Reason: Pain No Action Bisoprolol-Hctz 10-6.25 mg [Ziac 10-6.25] 1 tab PO DAILY Simvastatin 40 mg PO DAILY Losartan Potassium 100 mg PO DAILY Primidone [Mysoline] 50 mg PO HS Gabapentin [Neurontin] 300 mg PO TID Meloxicam [Mobic] 15 mg PO DAILY Discharge Medication List Bisoprolol-Hctz 10-6.25 mg [Ziac 10-6.25] 1 tab PO DAILY 12/25/17 [History] Losartan Potassium 100 mg PO DAILY 12/25/17 [History] Simvastatin 40 mg PO DAILY 12/25/17 [History] Gabapentin [Neurontin] 300 mg PO TID 07/10/24 [History] Meloxicam [Mobic] 15 mg PO DAILY 07/10/24 [History] Primidone [Mysoline] 50 mg PO HS 07/10/24 [History] Baclofen 10 mg PO Q8H PRN #30 tab 07/16/24 [Rx] HYDROcodone/APAP 5-325MG [Russell 5] 1 each PO Q6HR PRN #28 tab 07/16/24 [Rx] Meloxicam 7.5 mg PO DAILY #30 tab 07/16/24 [Rx] Follow up Appointment(s)/Referral(s): Spencer Smith MD [Primary Care Provider] - 1-2 days Constantino Cintron DPM [Doctor of Osteopathic Medicine] - 10 Days Activity/Diet/Wound Care/Special Instructions: Maintain splint left lower extremity. Nonweightbearing left lower extremity with walker. Elevate when in bed. Discharge Disposition: TRANSFER TO SNF/ECF
--- NOTE | 2024-07-16 17:43 | P.PN ---
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 With Dr. Smith.. Chronic stable medical conditions include hard of hearing with hearing aids, hyperlipidemia, hypertension, primary osteoarthritis. Patient also 25 inches of colon removed 30 years ago due to diverticulitis. Smokes half a pack a day. Also being treated for tremors with on primidone. Patient normally drinks 3 to 4 glasses of wine at night. Yesterday was a bit stressed decided have a bit more. She was wearing this larger slippers and she tripped and fell down. Suffering a fracture to the left ankle. Currently in a Alfonzo wrap. Otherwise patient is rather active with no cardiac symptoms. No cardiac history. July 11: Per Dr. Zapien's team patient's left ankle fracture swelling is to go down. Before surgery can be done. This probably happened next week. Meantime patient stable. On Valium for DT prophylaxis. Tolerating diet. Otherwise comfortable July 12: Remains comfortable in bed. Pain controlled. On Valium 2 mg twice daily for DT prophylaxis. Will decrease to once a day in the morning. Otherwise discussed with patient. Eating fair. July 13: In bed. Comfortable. No DVT signs. Stop Valium. Per orthopedic plan for surgery tomorrow. Questions answered. Likely stable for surgery July 14: Sitting up in bed. Pain controlled. Some itching at the fracture site. N.p.o. for surgery this afternoon. Otherwise feeling well. July 15: Yesterday evening patient underwent open reduction fixation of the left ankle trimalleolar fracture. Pain is controlled. Tolerated diet. Pending to go to rehab. July 16: Up in recliner. Tolerating diet. Pain controlled. Getting transferred to rehab today. Questions answered. Social history: Is a . Drinks anywhere from 3 to 4 glasses of wine a day. Smokes half a pack a day. Physical examination: VITAL SIGNS: 97.7, 58, 17, 125 x 67, 96% room air GENERAL: BMI 23.9, up in a recliner, comfortable EYES: Pupils equal. Conjunctiva anabel l. HEENT: External appearance of nose and ears normal, oral cavity grossly normal. NECK: JVD not raised; masses not palpable. HEART: First and second heart sounds are normal; no edema. LUNGS: Respiratory rate normal; clear to auscultation. ABDOMEN: Soft, nontender, liver spleen not palpable, no masses palpable. PSYCH: Alert and oriented x3; mood and affect anabel l. MUSCULOSKELETAL:No Clubbing/cyanosis;muscles-grossly intact. Evidence of OA in many joints including the hands. Left ankle i in a support INVESTIGATIONS, reviewed in the clinical context: July 15: White count 7.6 hemoglobin 12.9 platelets 248 potassium 4.6 creatinine 0.73 July 11: White count 7.7 hemoglobin 12.4 platelets 205 potassium 4.2 creatinine 0.7 White count 8.1 hemoglobin 12.2 platelets 214 sodium 139 potassium 4.4 AST 28 ALT 16 glucose 109 Urine drug screen positive for opiates, methadone EKG tracing personally reviewed by me-normal sinus rhythm. Chest x-ray film personally reviewed by me-unremarkable Left ankle x-ray: Displaced transverse medial malleolus fracture. Suspected posterior malleolus fracture as well. Valgus angulation of the talus. Distal fibular shaft fracture. Soft tissue swelling. Assessment plan: -Acute left ankle fracture at least in 3 places secondary to fall patient is using a large pair of slippers and tripped and fell. C Open reduction internal fixation of displaced left trimalleolar fracture of the ankle, by Dr. Cintron-July 14 -Alcohol use disorder. Patient averages 3 to 4 glasses of wine at night. Was up to 5 glasses a day before presentation. CIWA protocol. Initially given Valium that was discontinued. thiamine 100 mg a day. -Essential tremor Primidone 50 mg nightly -Primary osteoarthritis multiple joints Mobic 15 mg a day -Essential hypertension Bisoprolol hydrochlorothiazide 04/04.251 tablet a day losartan 100 mg a day -Hyperlipidemia Simvastatin 40 mg a day Discussed with patient. Stable. Going to rehab. Follow-up with PCP. Thank you Dr. Zapien Past Medical History Past Medical History: GERD/Reflux, Hearing Disorder / Deafness, Hyperlipidemia, Hypertension, Osteoarthritis (OA) Additional Past Medical History / Comment(s): Hard of hearing. History of Any Multi-Drug Resistant Organisms: None Reported Past Surgical History: Bowel Resection Additional Past Surgical History / Comment(s): 25 inches of colon removed 30 yrs ago due to diverticulititis. Past Anesthesia/Blood Transfusion Reactions: No Reported Reaction Past Psychological History: No Psychological Hx Reported Smoking Status: Current every day smoker Past Alcohol Use History: Daily Additional Past Alcohol Use History / Comment(s): Started smoking at 40 yrs old, quit 6 yrs ago, has resumed recently, states she smokes about 8 cigarettes a day. Drinks 3 glasses of wine daily. Past Drug Use History: None Reported
== END 2024-07-16 12:06 | DRG 494 ==
LOC: EC 00:34 → 5NMEDONC 02:37
PROVIDERS: ADMIT Orthopaedic Surgery; ATTEND Orthopaedic Surgery
PROC: HZ2ZZZZ Detoxification Services for Substance Abuse Treatment (ICD-10-PCS; 2024-07-10)
PROC: 0QSK04Z Reposition Left Fibula with Internal Fixation Device, Open Approach (ICD-10-PCS; 2024-07-14)
PROC: 3E0T3BZ Introduction of Anesthetic Agent into Peripheral Nerves and Plexi, Percutaneous Approach (ICD-10-PCS; 2024-07-14)
PROC: 8E0YXBF Computer Assisted Procedure of Lower Extremity, With Fluoroscopy (ICD-10-PCS; 2024-07-14)
PROC: 0QSH04Z Reposition Left Tibia with Internal Fixation Device, Open Approach (ICD-10-PCS; principal; 2024-07-14 16:30)
DX: S82.852A Displaced trimalleolar fracture of left lower leg, initial encounter for closed fracture (principal); M19.91 Primary osteoarthritis, unspecified site; I10 Essential (primary) hypertension; F10.129 Alcohol abuse with intoxication, unspecified; Y92.009 Unspecified place in unspecified non-institutional (private) residence as the place of occurrence of the external cause; F17.210 Nicotine dependence, cigarettes, uncomplicated; W01.0XXA Fall on same level from slipping, tripping and stumbling without subsequent striking against object, initial encounter; H91.90 Unspecified hearing loss, unspecified ear; E78.5 Hyperlipidemia, unspecified; X50.1XXA Overexertion from prolonged static or awkward postures, initial encounter; Z79.1 Long term (current) use of non-steroidal anti-inflammatories (NSAID); Z79.82 Long term (current) use of aspirin; Z79.899 Other long term (current) drug therapy; Z87.19 Personal history of other diseases of the digestive system; Y92.099 Unspecified place in other non-institutional residence as the place of occurrence of the external cause; Y90.6 Blood alcohol level of 120-199 mg/100 ml
CPT/HCPCS: 27752; 36415; 64445; 64447; 70450; 71045; 72125; 72170; 80048; 80053; 80306; 80320; 81003; 85025; 85610; 85730; 93005; 94760; 96361; 96365; 96375; 99291